=== PATIENT | female | born 1940 | race Caucasian/White ===

== ENCOUNTER 2022-08-29 09:44 | Outpatient (CLI) | payer MEDICARE, SELFPAY ==
--- NOTE | ~2022-08-29 | DEXA_ITS ---
Bone Density Report Name: TERRI SAENZ Age: 82 Sex: Female Ethnicity: White Date of : 1940 Indication: osteopenia; prior fracture; postmenopausal Referring Provider: JANELLE, AMI Sow Study: Bone densitometry was performed. Exam Date: August 29, 2022 Accession number: [id number] Bone Density: Region BMD T-score Z-score Classification AP Spine(L1, L2, L3) 0.978 -0.4 2.4 Normal Femoral Neck (Left) 0.592 -2.3 0.2 Osteopenia Total Hip (Left) 0.715 -1.9 0.4 Osteopenia Femoral Neck (Right) 0.577 -2.4 0.0 Osteopenia Total Hip (Right) 0.700 -2.0 0.3 Osteopenia Total Hip Mean 0.707 -2.0 0.4 Osteopenia World Health Organization criteria for BMD impression classify patients as: Normal (T-score at or above -1.0), Osteopenia (T-score between -1.0 and -2.5), or Osteoporosis (T-score at or below -2.5). 10-year Fracture Risk(1): Major Osteoporotic Fracture 25% Hip Fracture 8.1% Reported Risk Factors: [place] (), Neck BMD=0.577, BMI=25.5, previous fracture (1) FRAX(R) Version 3.08. Fracture probability calculated for an untreated patient. Fracture probability may be lower if the patient has received treatment. Previous Exams: Region Exam Age BMD T-score BMD Change BMD Change Date g/cm2 vs Baseline vs Previous AP Spine (L1-L3) 08/29/2022 82 0.978 -0.4 0.019 (2.0%) 0.019 (2.0%) 07/30/2017 76 0.958 -0.5 Total Hip(Left) 08/29/2022 82 0.715 -1.9 -0.030 (-4.0%) -0.030 (-4.0%) 07/30/2017 76 0.744 -1.6 Total Hip(Right) 08/29/2022 82 0.700 -2.0 -0.028 (-3.8%) -0.028 (-3.8%) 07/30/2017 76 0.728 -1.8 *Denotes significance at 95% confidence level, LSC for AP Spine = 0.022 g/cm2, LSC for Total Hip = 0.027 g/cm2 Clinical Information Provided by Patient: Has had a low trauma fracture Has used the following medications: Vitamin D Patient maximum height was 64.0 Menopause Age: 48 Drinks caffeinated beverages Onset of menses at age 11 Number of children 1 Impression: The patient has low bone mass, based on the Right Femoral Neck T-score. The patient has an estimated ten-year risk of hip fracture of 8.1% and an estimated ten-year risk of major fracture of 25%, based on the WHO FRAX algorithm. The patient has risk factors, including: previous fracture. The BMD for the Total Hip(Left) decreased, changing by -4.0% since the last DXA exam. The BMD for the Total Hip(Right) decreased, changing by -3.8% since th
== END 2022-08-29 09:45 | disposition home or self-care (01) ==
PROVIDERS: PCP Internal Medicine; Visit Provider Internal Medicine
DX: M81.0 Age-related osteoporosis without current pathological fracture (principal); M85.852 Other specified disorders of bone density and structure, left thigh; M85.851 Other specified disorders of bone density and structure, right thigh
CPT/HCPCS: 77080

== ENCOUNTER 2025-01-06 12:15 | Outpatient (CLI) | payer MEDICARE, SELFPAY ==
--- NOTE | ~2025-01-06 | XR_ITS ---
EXAM/ PROCEDURE: XR lumbar spine 2-3V - 01/06/2025 12:45 CDT HISTORY: 84 years old Female with pain in unspecified hip/low back pain COMPARISON: None available TECHNIQUE: Four view(s) FINDINGS/ IMPRESSION: There are no fractures or dislocations.Multilevel degenerative changes are seen. Atherosclerotic calc ifications are seen. Reviewed, dictated and finalized at location A.
--- NOTE | ~2025-01-06 | XR_ITS ---
AP view of the pelvis and AP and lateral views of the bilateral hips Clinical history: Pain Findings: No acute fracture or dislocation is seen. Osseous alignment is anatomic. Bilateral hip and SI joint spaces are preserved. Soft tissues are unremarkable. Impression: No significant abnormality is seen. Reviewed, dictated and finalized at [facility]. Impression: No significant abnormality is seen.
--- OUTSIDE RECORDS SUMMARY | 2025-01-06 13:38 | XMS_ITS | Continuity of Care Document ---
Author Organization [place] [facility], [facility] [place] Address [address] [place] [address] Care Team Providers Care Buggy Ladle Tender Name Role Phone AMI MAJOR Primary Care Provider [phone] AMI MAJOR Referring Provider Assessment No assessment recorded. Plan of Treatment Reminders Order Date Submit Date Provider Last Modified By Organization Details Last Modified Time Details Appointments None recorded . Lab CBC w/ auto diff 025 01/06/[address] [facility], [address] [place], [address], 5 15:19:59 CMP, serum or plasma 025 01/06/[address] [facility], [address] [place], [address], 5 15:20:00 lipid panel, serum 025 01/06/[address] [facility], [address] [place], [address], 5 15:20:00 Referral None recorded . Procedures None recorded . Surgeries None recorded . Imaging None recorded . Medication Orders None recorded . Patient TargetsNo targets recorded. Patient Instructions Encounter Date Encounter Id Patient Instructions Last Modified By Organization Details Last Modified Time 01/05/2025 [id number] Follow-up rocha ry artery disease, essential hypertension, hyperlipidemia, bilateral hip pain and chronic kidney disease stage IIIA. Instructed once again to stay away from any type of non steroid inflammatory agents. Will continue on current medications. Check a CBC CMP lipid panel. Also check a x-ray both the lumbar spine and hips. Follow-up in six months Additional Orders - Directives - Recommendations 1. x-ray of pelvis and both hips 2. X-ray lumbar spine Follow Up: 6 Months Approximate Date: 07/04/2025 Portions of record are template driven. When necessary additional context will be provided. Additionally some portions have been created with voice recognition software. Occasional wrong-word or [id number] substitutions may have occurred due to the inherent limitations of voice recognition software. Read the chart carefully and recognize, using context, where substitutions may have occurred. Created: Ami Major M.D. 01.05.2025 02:19 PM [email or web address] Not available 01/05/2025 15:19:03 Reason for Referral None Reported. Results Created Date Observation Date Name Description Value Unit Range Abnormal Flag Note LastModifiedBy Organization Detail LastModifiedTime 01/07/2001/06/2025 XR, hip + pelvi s, bilat eral No observ ation record ed. [address], [place], [address], 01/06/2025 14:32:55 01/07/2001/06/2025 XR, lumba r spine No observ ation record ed. [address], [place], [address], 01/06/2025 14:35:38 Result Notes None recorded. Problems Name Problem SNOMED Code Status Onset Date Resolution Date Notes Provider Name and Address Organization Details Recorded Time Renewal of prescription Active 2021 Not Available [facility] 3 14:11:38 Pure hypercholeste rolemia 017020407 Active Not Available [facility] 3 14:11:38 Age related macular degeneration 151093399 Active Not Available [facility] 3 14:11:38 Shoulder joint pain 619947257 Active Not Available [facility] 3 14:11:38 Osteopenia 683866905 Active 2021 Not Available [facility] 3 14:11:38 Vitamin D deficiency 24274386 Active Not Available [facility] 3 14:11:38 Exudative age-related macular degeneration 105210629 Active 2021 Not Available [facility] 3 14:11:39 Coronary arteriosclero sis 52855306 Active Not Available [facility] 3 14:11:39 Carotid artery stenosis 49425619 Active Not Available [facility] 3 14:11:39 Osteoporosis 63665935 Active 2021 Not Available [facility] 3 14:11:39 Chronic kidney disease stage 3A 040625297 Active 2019 Not Available [facility] 3 14:11:39 Serum creatinine above reference range 872405246 Active 2022 Giovanna Buck HAND BOOTMAKER null, [place] [facility] 3 14:54:09 Essential hypertension 51364993 Active 2023 Giovanna Buck CMA null, [place] [facility] 4 14:02:31 Hip pain 80168370 Active 2024 Ami Major MD [address] [place] [address], [phone] , [facility] 5 15:14:00 Low back pain 447490392 Active 2024 Daisy Sean null, [facility] 5 15:23:14 Problem Notes None recorded. Medical Equipment None Reported. Allergies Allergen ID Allergen Name Allergen Category Reaction Reaction Severity Criticality Documentation Date Start Date Code Code System Note Provider Name and Address Organization Details Recorded Time 64754 lisinopri l medicatio n cough Not available Not available 11/28/2022 73415 RxNorm Not Available [facility] 3 14:14:24 Medications Name Sig Start Date Stop Date Status Note LastModified by Organization Details LastModified Time losartan 50 mg tablet Take 1 tablet every day by oral route. 09/15 completed Not Available Not Available Not Available amoxicillin 500 mg capsule Take 1 capsule 3 times a day by oral route for 10 days. 01/07 completed Not Available Not Available Not Available atorvastati n 40 mg tablet TAKE 1 TABLET EVERY DAY active Not Available Not Available No t Available aspirin 325 mg tablet on three times weekly 2012 active Not Available Not Available Not Avai lable alendronate 70 mg tablet TAKE 1 TABLET BY MOUTH ONCE A WEEK active Not Available Not Available No t Available aspirin 81 mg tablet,rohan yed release Take 1 tablet every day by oral route. active Not Available Not Available No t Available Cipro 500 mg tablet Take 1 tablet twice a day by oral route for 10 days. 01/15 completed Not Available Not Available Not Available metoprolol tartrate 50 mg tablet TAKE 1 TABLET TWICE DAILY active Not Available Not Available No t Available hydrochloro thiazide 25 mg tablet TAKE 1 TABLET BY MOUTH ONCE DAILY active Not Available Not Available No t Available metoprolol succinate ER 25 mg tablet,exte nded release 24 hr Take 1 tablet every day by oral route. 2013 active Not Available Not Available Not Avai lable Vitamin D2 1,250 mcg (50,000 unit) capsule Take 1 capsule every week by oral route. 01/15 completed Not Available Not Available Not Available losartan 100 mg tablet TAKE 1 TABLET EVERY DAY 07/02 completed Not Available Not Available Not Available atenolol 50 mg tablet Take 1 tablet every day by oral route. 2012 active Not Available Not Available Not Avai lable Asprin Ec Low Dose 81 mg tablet,rohan yed release Take 1 tablet every day by oral route. 12/30 completed Not Available Not Available Not Available ezetimibe 10 mg tablet TAKE 1 TABLET EVERY DAY active Not Available Not Available No t Available Multivitami n 50 Plus tablet Take 1 tablet every day by oral route. 2018 active Not Available Not Available Not Avai lable metoprolol tartrate 25 mg tablet TAKE 1 TABLET TWICE DAILY 08/25 completed Not Available Not Available Not Available Co Q-10 07/14 completed Not Available Not Available Not Available Os-Risa 500 + D3 one twice a day 07/02 completed Not Available Not Available Not Available [place] 3 1000mg twice a day 07/02 completed Not Available Not Available Not Available multivitami n once daily 07/14 completed Not Available Not Available Not Available ICaps AREDS one daily 01/15 completed Not Available Not Available Not Available Os-Risa 500 + D3 500 mg-15 mcg (600 unit) tablet Take 1 tablet twice a day by oral route. active Not Available Not Available No t Available PreserVisio n AREDS-2 250 mg-90 mg-40 mg-1 mg capsule Take 1 tablet every day by oral route. 12/30 completed Not Available Not Available Not Available metoprolol tartrate 75 mg tablet 01/01 completed Not Available Not Available Not Available ID NOW COVID-19 Test Kit DIRECTED 06/12 completed Not Available Not Available Not Available omega 3 360 mg-dha 108 mg-epa 180 mg-fish oil 1,200 mg capsule Take 1 capsule every day by oral route. active Not Available Not Available No t Available Vitals Date Recorded Body height Body mass index (BMI) Body weight Heart rate Body temperature Oxygen saturation Oxygen saturation in Arterial blood by Pulse oximetry Systolic blood pressure Diastolic blood pressure Provider Name and Address Organization Details Last Updated DateTime 5 161.29 cm 24.8 kg/m2 24851.1 2 g 76 /min 97 [degF] 97 % 97 % 120 mm[Hg] 64 mm[Hg] Cande Ramos Jorge Luis [employer] 5 15:03:28 Social History Question Answer Notes LastModified by [employer] Details LastModified Time Are You Blind Or Do You Have Difficulty Seeing? No [id number] Information not available 11/28/2022 In The 14 Days Before Symptom Onset, Have You Had Close Contact With A Laboratory-confirme d COVID-19 While That Case Was Ill? No [id number] Information not available 11/28/2022 In The 14 Days Before Symptom Onset, Have You Had Close Contact With A Person Who Is Under Investigation For COVID-19 While That Person Was Ill? No [id number] Information not available 11/28/2022 Are You Deaf Or Do You Have Serious Difficulty Hearing? No [id number] 26 Information not available 11/28/2022 Have You Recently Traveled Abroad? No [id number] 26 Information not available 11/28/2022 Sex: Unknown Functional Status Question Answer Note LastModified by [employer] Details LastModified Time Do you have difficulty walking or climbing stairs? No [id number] Information not available 11/28/2022 Do you have transportation difficulties? No [id number] Information not available 11/28/2022 Are you able to walk? YESWOREST [id number] Information not available 11/28/2022 Do you have difficulty doing errands alone? No [id number] [id number] Information not available 11/28/2022 Are you able to care for yourself? Yes [id number] Information not available 11/28/2022 Do you have difficulty dressing or bathing? No [id number] 026 Information not available 11/28/2022 Mental Status Question Answer Note LastModified by Organizat ion Details LastModified Time Do you have difficulty concentrating, remembering or making decisions? No [id number] Information not available 11/28/2022 Family History Nothing Reported Notes:Mother 70+ of DIANA D, CVA Father at 62 from ASHD and [place] Three brothers two living one with hx of ASHD and one of cardiac problems One sister living with cardiac problems. Medical History Condition Response NERVE DISEASE N BLINDNESS N RHEUMATIC FEVER N KIDNEY STONES N BLADDER PROBLEMS N MRSA N OTHER # 1 N POLIO N LUNG DISEASE/DISORDER N RADIATION / CHEMOTHERAPY N COPD N Other # 2 N BLOOD DISEASES N EAR OR HEARING PROBLEMS N MUMPS N BOWEL PROBLEMS N DEPRESSION (INCLUDING POST ) N STROKE/TIA N ULCERS N BENIGN PROSTATIC HYPERPLASIA N MEASLES N MYOCARDIAL INFARCTION N OBESITY N GERD/NAUSEA N ANEURYSM N URINARY/BLADDER/KIDNEY PROBLEMS N CORONARY ARTERY DISEASE (CAD) Y ADDICTION CONCERNS N Impotence N ENDOMETRIOSIS N USE OF BLOOD THINNERS N SKIN PROBLEMS N GASTROINTESTINAL DISORDER N PERIPHERAL VASCULAR DISEASE N MUSCLE,JOINT OR BONE PROBLEMS N GASTROINTESTINAL BLEEDING N BLOOD CLOTS N ASTHMA N CATARACTS N ERECTILE DYSFUNCTION N VARICOSITIES N GI PROBLEMS N Low Testosterone N INFERTILITY N AIDS/HIV N CHEMOTHERAPY / RADIATION N LIVER DISEASE N MALE HYPOGONADISM N HYPERTENSION Y Deficiency N TOURETTE'S N ANXIETY DISORDER N BLOOD TRANSFUSION N ANEMIA/BLOOD DISORDER N CHRONIC EAR INFECTIONS N BRONCHITIS N TUBERCULOSIS N GLAUCOMA N FOOT PROBLEM N DIVERTICULITIS N SLEEP APNEA N CHICKENPOX N INFECTIOUS DISEASE N PROSTATE N HEART ARRHYTHMIA N INSOMNIA N HIGH CHOLESTEROL / HYPERLIPIDEMIA Y EYE PROBLEMS Y HYPERTHYROIDISM N EDEMA N CHRONIC PAIN SYNDROME N HYPOTHYROIDISM N CONSTIPATION N CAROTID BLOCKAGE N BACK / NECK PROBLEMS N HAVE YOU BEEN HOSPITALIZED OR SEEN IN [facility] IN THE PAST YEAR ? N ATHEROSCLEROSIS N BREAST PROBLEMS N DIALYSIS N ECZEMA N OSTEOPOROSIS N ARTHRITIS N NO SIGNIFICANT PAST MEDICAL HISTORY N APPENDICITIS N DIABETES, TYPE N BAD TEETH N ENT N HEARTBURN / REFLUX N AUTISM SPECTRUM DISORDER (ASD) N HEPATITIS / LIVER DISEASE N GOUT N SLEEP DISORDER N ALZHEIMER'S DISEASE N Brain Problems N DEMENTIA N HERPES N SEIZURES/EPILEPSY N HEADACHES/MIGRAINES N VASCULAR DISEASE N PACEMAKER N Blood Disorder N DIZZINESS N HEART DISEASE/HEART PROBLEMS N KIDNEY DISEASE N MULTIPLE SCLEROSIS N CANCER: SPECIFY N CARDIAC ARRHYTHMIA N ATRIAL FIBRILLATION N Gall Stones N PULMONARY EMBOLISM N AUTOIMMUNE DISEASE N Gynecological HistoryNo gynecological history recorded. Obstetrics History GPAL:G 0 P 0 0 0 0 Immunizations Vaccine Type Date Status Note Provider Nam e and Address Organization Details Recorded Time Influenza, high-dose, quadrivalent, PF 3 completed Ami Major MD [address] [facility], [place], [address], [employer] [facility] [employer] 07/02/2023 15:36:32 Influenza, high-dose, trivalent, PF 4 completed Ami Major MD [address] [facility], [place], [address], [employer] 07/07/2024 15:34:20 Pneumococcal conjugate PCV20, polysaccharide [id number] conjugate, adjuvant, PF 4 completed Ami Major MD [address], [place], [address], [employer] [facility] [employer] 07/07/2024 15:34:20 Influenza, split virus, trivalent, preservative 3 completed Not Available [facility] 11/28/2022 14:14:21 SARS-COV-2 (COVID-19) vaccine, UNSPECIFIED 1 completed Not Available [facility] 11/28/2022 14:14:21 SARS-COV-2 (COVID-19) vaccine, UNSPECIFIED 1 completed Not Available [facility] 11/28/2022 14:14:21 Influenza, split virus, quadrivalent, preservative 2 completed Not Available [facility] 11/28/2022 14:14:21 COVID-19, mRNA, LNP-S, PF, 30 mcg/0.3 mL dose 2 completed Not Available [facility] 11/28/2022 14:14:21 COVID-19, mRNA, LNP-S, PF, 30 mcg/0.3 mL dose 1 completed Not Available [facility] 11/28/2022 14:14:21 Influenza, split virus, quadrivalent, preservative 1 completed Not Available [facility] 11/28/2022 14:14:21 Influenza, high-dose, trivalent, PF 8 completed Not Available [facility] 11/28/2022 14:14:21 Influenza, high-dose, trivalent, PF 7 completed Not Available [facility] 11/28/2022 14:14:22 Influenza, high-dose, trivalent, PF 6 completed Not Available [facility] 11/28/2022 14:14:22 Pneumococcal conjugate PCV 13 7 completed Not Available [facility] 11/28/2022 14:14:22 Influenza, split virus, quadrivalent, preservative 5 completed Not Available [facility] 11/28/2022 14:14:22 Influenza, high-dose, trivalent, PF 4 completed Not Available [facility] 11/28/2022 14:14:22 Past Encounters Encounter ID Performer Location Encounter Start Date Encounter Closed Date Diagnosis/Indication Diagnosis SNOMED-CT Code Diagnosis ICD10 Code Diagnosis Note [id number] Ami Major MD [facility] [address] [place] [address] 01/05/2025 14:49:03 01/05/2025 15:29:17 Coronary arteriosclerosis 65344128 I25.10 Essential hypertension 57414896 I10 Pure hypercholesterolemia 888784594 E78.00 Hip pain 19376823 M25.55 9 Chronic ki dney disease stage 3A 661229769 N18.31 Health Concerns Section Related Observation LastModified by Organization Detai ls LastModified Time None Recorded Concern Status LastModified by Organization Details LastModified Time None Recorded Payers Encounter Date Sequence Insurance Name Policy Number Policy Larose Covered Member ID Larose Member ID Guarantor Name 01/05/2025 1 [place] Yani Herron [id number] Yani Herron 01/05/2025 2 [place] [id number] Yani Herron [id number] Yani Herron Notes Date Note Type Note Provider Name and Address Organization Details Recorded Time 5 text/htm l Patient Name: Yani HerronDate Of Service: Saturday ( 01.05.2025 ): 1940 Age: 84 There has been approximately a 2 lb weight gain since 07/07/2024. This represents approximately a 1.4% change in weight. Weight change attributable to lifestyle changes. Vital Signs:Blood Pressure: Sitting Rt. Arm 120/64Pulse: Sitting 76 /min and RegularRespiratory Rate: 16Height 63.5 in or 1.6 mWeight 142 lb or 64.4 kgBMI 24.8Temperature: 97 F or 36.1 CPulse Oximetry: 97 % at rest on no oxygen Chief Complaint: Addressed in HPI Problems or conditions discussed in the HPI were the only ones reviewed during the encounter.Only social and family history addressed in the HPI were reviewed during this encounter. Attendant(s): NoneConstitutional and Systemic Symptoms:none Medication Reconciliation: from medication list. History of Present Illness #1. Coronary Artery Disease: There has been no change in frequency - duration - intensity in frequency, duration or intensity of chest pain. Other Complaints: none The frequency of anginal attacks is none at all. Additional Symptoms: none Therapy reviewed regarding cardiovascular management includes Aspirin, Hydrochlorothiazide, Lipitor, Metoprolol Tartrate and Zetia #2. Essential Hypertension: Stage: Stage I Interval Neurological Complaints no headaches, dizziness, weakness, visual changes, ataxia, aphasia and apraxia. No shortness of breath, orthopnea or cardiovascular symptoms. No other symptoms related to end organ damage. Pressure has been under excellent control. Currently normal. No other end organ symptoms or findings. Therapy reviewed regarding management of hypertension and includes salt restriction and Hydrochlorothiazide and Metoprolol Tartrate. #3. Type II Hypercholesterolaemia: Currently taking medication and tolerating well. No interval complaints of any muscle pain or arthralgia. No significant liver changes with medications. Last lipid panel: excellent control. Therapy reviewed regarding treatment of cholesterol management and include diet and Lipitor and Zetia. #4. Complaining of bilateral hip pain more in the morning than in the evening. States that when she gets up and starts moving around the pain seems to get better. Does not interfere with any daily activities. Denies any numbness, tingling, weakness, saddle anesthesia or any incontinence of urine or stool.: #5. History of chronic renal failure currently doing well. Currently is followed by a broadcast operations manager. Stage: CKD-3a. Albumin Stage: A1. There has been no change in urine output or color. No fever or chills. Active Medication ListAspirin 325 MG One Three Times WeeklyMetoprolol Tartrate 50 MG (TABLET - ORAL) One BidLipitor 80 MG (TABLET - ORAL) One Tab DailyOmega-3 1000 MG One BidOs-risa D 500 MG One Bid For Calcium ReplacementMultivitamin One DailyZetia 10 MG (TABLET - ORAL) One DailyPerser Vision Aereds II DailyHydrochlorothiazide 25 MG TABLET Once DailyAlendronate Sodium 70 MG TABLET One Weekly Adverse Drug Reactions ReviewedLisinopril Cough Vaccination and Immunization( ) 2008-07 PNEUMOVAX( ) 2024-06 INFLUENZA( ) 2017-06 PREVNAR 13 GC(X) 2021-06 COVID PFIZER( ) 2024-06 INFLUENZA ED HD( ) 2024-06 PREVNAR 20 Surgical Banccip7271-19 CABG Preventative Testing( ) 07/09/2024 Albumin 4.1 G/DL N( ) 08/29/2022 DEXA Scan 08/29/2024( ) 07/26/2022 Ophthalmology( ) 06/01/2016 Optometry( ) 01/19/2016 Mammogram( ) 03/05/2014 Colonoscopy (10 Years) 03/05/2024 Social HistoryDoes not smoke drinks socially Family HistoryMother 70+ of ASHD, CVAFather at 62 from ASHD and [place]Three brothers two living one with hx of ASHD and one of cardiac problemsOne sister living with cardiac problems. TEST RESULT RANGE UNITSCBC (INCLUDES DIFF/PLT) Date: 07/09/2024WHITE BLOOD CELL COUNT 6.3 3.8-10.8 THOUSAND/ULHEMOGLOBIN 14.6 11.7-15.5 G/DLHEMATOCRIT 44.4 35.0-45.0 %PLATELET COUNT 207 140-400 THOUSAND/ULCOMPREHENSIVE METABOLIC PANEL Date: 07/09/2024GLUCOSE 104 65-99 MG/DLUREA NITROGEN (BUN) 23 7-25 MG/DLCREATININE 1.30 0.60-0.95 MG/DLSODIUM 139 135-146 MMOL/LPOTASSIUM 4.1 3.5-5.3 MMOL/LCALCIUM 10.1 8.6-10.4 MG/DLALKALINE PHOSPHATASE 73 37-153 U/LAST 17 10-35 U/LALT 22 6-29 U/LLIPID PANEL, STANDARD Date: 4CHOLESTEROL, TOTAL 132 <200 MG/DLHDL CHOLESTEROL 44 > OR = 50 MG/DLTRIGLYCERIDES 118 <150 MG/DLLDL-CHOLESTEROL 68 MG/DL (CALC) Ami Major MD [address] [facility] [facility] [address], [place], [address], [place] [facility] 01/05/2025 15:19:30 OBGyn Episode No OBEpisode recorded.
--- OUTSIDE RECORDS SUMMARY | 2025-01-06 13:39 | XMS_ITS | Data Portability ---
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 Plan of Treatment Reminders Order Date Submit Date Provider Last Modified By Organization Details Last Modified Time Details Appointments None recorded. Lab CBC w/ auto diff [address] Out[facility], [address] [place], [address], 15:19:59 CMP, serum or plasma [address] Out[facility], [address] [place], [address], 5 15:20:00 lipid panel, serum [address] Outpatient Lab, [address] [place], [address], 5 15:20:00 PTH (parathyroi d hormone), intact, serum or plasma 2023 024 [facility] Out[facility] Lab, [address] [place], [address], 4 20:50:45 vitamin D, 25-hydroxy, total, serum 2023 024 [facility], [address] [place], [address], 4 20:50:48 phosphorus, serum or plasma 2023 024 [facility], [address] [place], [address], 20:50:40 urinalysis complete, reflex culture 2023 024 [facility], [address] [place], [address], 20:50:43 CBC w/ auto diff 2023 024 [facility], [address] [place], [address], 20:50:42 CMP, serum or plasma 2023 024 [facility], [address] [place], [address], 20:50:41 TSH, serum or plasma 2023 024 [facility], [address] [place], [address], 20:50:47 T4, free, serum 2023 024 [facility], [address] [place], [address], 20:50:46 PTH (parathyroi d hormone), intact, serum or plasma 2023 024 [facility], [address] [place], [address], 4 06:39:23 vitamin D, 25-hydroxy, total, serum 2023 024 [facility], [address] [place], [address], 4 06:39:24 phosphorus, serum or plasma 2023 024 [facility], [address] [place], [address], 4 06:39:18 urinalysis complete, reflex culture 2023 024 [facility], [address] [place], [address], 4 06:39:21 CBC w/ auto diff 2023 024 [facility], [address] [place], [address], 4 06:39:20 CMP, serum or plasma 2023 024 [facility], [address] [place], [address], 4 06:39:19 lipid panel, serum 2023 024 [facility], [address] [place], [address], 4 06:39:16 lipid panel, serum 2022 023 [facility], [address] [place] [address], [address], 3 17:05:01 lipid panel, serum 2022 023 [facility], [address] [place], [address], 3 03:07:24 CMP, serum or plasma 2022 023 [facility], [address] [place], [address], 3 03:07:26 PTH (parathyroi d hormone), intact, serum or plasma [email or web address] [place] [address] Outpatient Lab, [address] [place], [address], 3 13:55:06 vitamin D, 25-hydroxy, total, serum 2022 023 [facility], [address] [place] [address], [address], 3 03:07:30 phosphorus, serum or plasma 2022 023 [facility], [address] [place] [address], [address], 3 03:07:27 urinalysis complete, reflex culture 2022 023 [facility], [address] [place] [address], [address], 3 03:07:28 CBC w/ auto diff 2022 023 [facility] Lab, [address] [place] [address], [address], 3 03:07:27 Referral None recorded. Procedures None recorded. Surgeries None recorded. Imaging None recorded. Medication Orders None recorded. Patient TargetsNo targets recorded. Patient Instructions Encounter Date Encounter Id Patient Instructions Last Modified By Organization Details Last Modified Time 01/01/2023 [id number] Follow-up rocha ry artery disease -hypertension -hyperlipidemia-chr onic kidney disease. Clinically stable. No interval complaints of any new problems. Will need blood work in the form of CBC, CMP, lipid, PTH, phosphorus, vitamin-D level and urinalysis. Continue on current Rx. Follow-up in six months [email or web address] Not available 01/01/2023 15:02:09 07/02/2023 [id number] Coronary artery disease, essential hypertension, lipidemia and chronic kidney disease stage IIIA. Was given the influenza shot. Currently is doing well overall. Is being followed by Nephrology. Will continue on current Rx. Will check a lipid panel. Follow-up in six months. Standard immunizations of RSV, COVID, influenza and shingles as recommended Portions of the record may have been created with voice recognition software. Occasional wrong-word or s ound-a-like substitutions may have occurred due to the inherent limitations of voice recognition software. Read the chart carefully and recognize, using context, where substitutions have occurred. [email or web address] Not available 07/02/2023 15:41:47 12/31/2023 [id number] Follow-up rocha ry artery disease, hypertension, hyperlipidemia and chronic kidney disease stage IIIA. All clinically stable. Will continue on current Rx check blood work consisting of CBC, CMP, lipid, phosphorus, PTH, vitamin-D level and urinalysis. Continue on current Rx follow-up in six months. Next Appt: 6 Months Approximate Date: 06/28/2024 Portions of the record may have been created with voice recognition software. Occasional wrong-word or s ound-a-like substitutions may have occurred due to the inherent limitations of voice recognition software. Read the chart carefully and recognize, using context, where substitutions have occurred. [email or web address] Not available 12/31/2023 15:51:23 07/07/2024 [id number] Follow-up rocha ry artery disease, hypertension, hyperlipidemia, chronic kidney disease stage IIIA. Check blood work consisting of CBC, CMP, lipid, thyroid, phosphorus, PTH level, vitamin-D. Follow-up in six months. Follow Up: 6 Months Approximate Date: 01/03/2025 Portions of the record may have been created with voice recognition software. Occasional wrong-word or s ound-a-like substitutions may have occurred due to the inherent limitations of voice recognition software. Read the chart carefully and recognize, using context, where substitutions have occurred. [email or web address] Not available 07/07/2024 15:18:37 01/05/2025 [id number] Follow-up rocha ry artery disease, essential hypertension, [...] with voice recognition software. Occasional wrong-word or s ound-a-like substitutions may have occurred due to the inherent limitations of voice recognition software. Read the chart carefully and recognize, using context, where substitutions may have occurred. Created: Ami Major M.D. 01.05.2025 02:19 PM [email or web address] Not available 01/05/2025 15:19:03 Reason for Referral None Reported. Results Created Date Observation Date Name Description Value Unit Range Abnormal Flag Note LastModifiedBy Organization Detail LastModifiedTime 01/05/2001/06/2023 LIPID PANEL , STAND ZHANE cholesterol, total 140 mg/dL <200 normal Not Available [address], [address], 01/06/2023 03:07:23 01/05/20 23 01/06/2023 LIPID PANEL , STAND ZHANE HDL cholesterol 51 mg/dL > or = 50 normal Not Available [address], [address], 01/06/2023 03:07:23 01/05/20 23 01/06/2023 LIPID PANEL , STAND ZHANE triglyceride s 89 mg/dL <150 normal Not Available [address], [address], 01/06/2023 03:07:23 01/05/20 23 01/06/2023 LIPID PANEL , STAND ZHANE LDL-choleste rol 72 mg/dL _(risa c) normal Refer ence range : <100 Rosanna able range <100 mg/dL for prima ry preve ntion ; <70 mg/dL for patie nts with CHD or diabe tic patie nts with > or = 2 CHD risk facto rs. LDL-C is now calcu lated using the Yasmin n-Hop kins araceliu albert n, which is a valid ated novel kristiano d yesi gupta accur acy than the Fried maegan equat ion in the estim ation of LDL-C . Yasmin terrazas SS et al. MAUREEN. 2013; 310(1 9): 2061- 2068 (http ://ed ucati on.Qu estDi agnos Partnerbyte. com/f aq/FA Q164) Not Available [address] [address] [place], [address], 01/06/2023 03:07:23 01/05/20 23 01/06/2023 LIPID PANEL , STAND ZHANE chol/HDLC ratio 2.7 (calc ) <5.0 normal Not Available [address], [address], 01/06/2023 03:07:23 01/05/20 23 01/06/2023 LIPID PANEL , STAND ZHANE non HDL cholesterol 89 mg/dL _(risa c) <130 normal For patie nts with diabe edwin plus 1 major ASCVD risk facto r, treat ing to a non-H DL-C goal of <100 mg/dL (LDL- C of <70 mg/dL ) is consi yun a aarti faith c optio n. Not Available [address], [place], [address], 01/06/2023 03:07:23 01/05/2001/06/2023 PTH, INTAC T AND CALCI UM parathyroid hormone, intact 66 pg/mL 16-77 normal Inter preti ve Guide Intac t PTH Calci um ----- ----- ----- --- ----- ----- ----- -- Ryaa l Parat hyroi d Raya l Raya l Hypop eli yroid ism Low or Low Raya l Low Hyper parat hyroi dism Prima ry Raya l or High High Secon adelita High Raya l or Low Terti harley High High Non-P eli yroid Hyper calce romulo Low or Low Raya l High Not Available [address] [address] [place], [address], 01/06/2023 03:07:25 01/05/2001/06/2023 PTH, INTAC T AND CALCI UM calcium 9.8 mg/dL 8.6-10 .4 normal Not Available [facility] [address], [address], 01/06/2023 03:07:25 01/05/20 23 01/06/2023 COMPR EHENS JOSE METAB OLIC PANEL glucose 104 mg/dL 65-99 high Fasti ng refer ence inter carlos alberto For someo ne witho ut known diabe edwin, a gluco se value betwe en 100 and 125 mg/dL is consi stent with predi abete s and shoul d be confi rmed with a follo w-up test. Not Available [address], [address], 01/06/2023 03:07:26 01/05/20 23 01/06/2023 COMPR EHENS JOSE METAB OLIC PANEL urea nitrogen (BUN) 26 mg/dL 7-25 high Not Available [address], [address], 01/06/2023 03:07:26 01/05/20 23 01/06/2023 COMPR EHENS JOSE METAB OLIC PANEL creatinine 1.41 mg/dL 0.60-0 .95 high Not Available [address], [address], 01/06/2023 03:07:26 01/05/20 23 01/06/2023 COMPR EHENS JOSE METAB OLIC PANEL eGFR 37 mL/mi n/1.7 3m2 > or = 60 low The eGFR is based on the CKD-E PI 2020 equat ion. To calcu late the new eGFR from a previ ous Creat inine or Cysta alaina C resul t, go to https ://kalyani barnes/gwen dunbar/ kdoqi /gfr% 5Fcal culat or Not Available [address], [address], 01/06/2023 03:07:26 01/05/20 23 01/06/2023 COMPR EHENS JOSE METAB OLIC PANEL BUN/creatini ne ratio 18 (calc ) 6-22 normal Not Available [address], [address], 01/06/2023 03:07:26 01/05/20 23 01/06/2023 COMPR EHENS JOSE METAB OLIC PANEL sodium 142 mmol/ L 135-14 6 normal Not Available [address], [address], 01/06/2023 03:07:26 01/05/20 23 01/06/2023 COMPR EHENS JOSE METAB OLIC PANEL potassium 5.9 mmol/ L 3.5-5. 3 high Not Available [address], [address], 01/06/2023 03:07:26 01/05/20 23 01/06/2023 COMPR EHENS JOSE METAB OLIC PANEL chloride 108 mmol/ L 98-110 normal Not Available [address], [address], 01/06/2023 03:07:26 01/05/20 23 01/06/2023 COMPR EHENS JOSE METAB OLIC PANEL carbon dioxide 28 mmol/ L 20-32 normal Not Available [address], [address], 01/06/2023 03:07:26 01/05/20 23 01/06/2023 COMPR EHENS JOSE METAB OLIC PANEL calcium 9.8 mg/dL 8.6-10 .4 normal Not Available [address], [address], 01/06/2023 03:07:26 01/05/2001/06/2023 COMPR EHENS JOSE METAB OLIC PANEL protein, total 6.6 g/dL 6.1-8. 1 normal Not Available [address], [address], 01/06/2023 03:07:26 01/05/20 23 01/06/2023 COMPR EHENS JOSE METAB OLIC PANEL albumin 4.2 g/dL 3.6-5. 1 normal Not Available [address], [address], 01/06/2023 03:07:26 01/05/20 23 01/06/2023 COMPR EHENS JOSE METAB OLIC PANEL globulin 2.4 g/dL_ (calc ) 1.9-3. 7 normal Not Available [address], [address], 01/06/2023 03:07:26 01/05/20 23 01/06/2023 COMPR EHENS JOSE METAB OLIC PANEL albumin/glob ulin ratio 1.8 (calc ) 1.0-2. 5 normal Not Available [address], [address], 01/06/2023 03:07:26 01/05/20 23 01/06/2023 COMPR EHENS JOSE METAB OLIC PANEL bilirubin, total 0.5 mg/dL 0.2-1. 2 normal Not Available [address], [place], [address], 01/06/2023 03:07:26 01/05/20 23 01/06/2023 COMPR EHENS JOSE METAB OLIC PANEL alkaline phosphatase 77 U/L 37-153 normal Not Available [address] [address] [place], [address], 01/06/2023 03:07:26 01/05/20 23 01/06/2023 COMPR EHENS JOSE METAB OLIC PANEL AST 16 U/L 10-35 normal Not Available [address], [address], 01/06/2023 03:07:26 01/05/20 23 01/06/2023 COMPR EHENS JOSE METAB OLIC PANEL ALT 20 U/L 6-29 normal Not Available [address], [address], 01/06/2023 03:07:26 01/05/20 23 01/06/2023 PHOSP HATE ( PHOSP HORUS ) phosphate ( phosphorus) 3.4 mg/dL 2.1-4. 3 normal Not Available [address], [address], 01/06/2023 03:07:27 01/05/2001/06/2023 CBC (INCL UDES DIFF/ PLT) white blood cell count 6.6 thous and/u L 3.8-10 .8 normal Not Available [address], [address], 01/06/2023 03:07:27 01/05/20 23 01/06/2023 CBC (INCL UDES DIFF/ PLT) red blood cell count 4.64 dillan on/uL 3.80-5 .10 normal Not Available [address], [address], 01/06/2023 03:07:27 01/05/20 23 01/06/2023 CBC (INCL UDES DIFF/ PLT) hemoglobin 14.3 g/dL 11.7-1 5.5 normal Not Available [address], [address], 01/06/2023 03:07:27 01/05/2001/06/2023 CBC (INCL UDES DIFF/ PLT) hematocrit 43.8 % 35.0-4 5.0 normal Not Available [address], [address], 01/06/2023 03:07:27 01/05/20 23 01/06/2023 CBC (INCL UDES DIFF/ PLT) MCV 94.4 fL 80.0-1 00.0 normal Not Available [address], [address], 01/06/2023 03:07:27 01/05/20 23 01/06/2023 CBC (INCL UDES DIFF/ PLT) MCH 30.8 pg 27.0-3 3.0 normal Not Available [address], [address], 01/06/2023 03:07:27 01/05/20 23 01/06/2023 CBC (INCL UDES DIFF/ PLT) MCHC 32.6 g/dL 32.0-3 6.0 normal Not Available [address], [address], 01/06/2023 03:07:27 01/05/20 23 01/06/2023 CBC (INCL UDES DIFF/ PLT) RDW 12.5 % 11.0-1 5.0 normal Not Available [address], [address], 01/06/2023 03:07:27 01/05/2001/06/2023 CBC (INCL UDES DIFF/ PLT) platelet count 204 thous and/u L 140-40 0 normal Not Available [address], [address], 01/06/2023 03:07:27 01/05/20 23 01/06/2023 CBC (INCL UDES DIFF/ PLT) MPV 10.8 fL 7.5-12 .5 normal Not Available [address], [address], 01/06/2023 03:07:27 01/05/2001/06/2023 CBC (INCL UDES DIFF/ PLT) absolute neutrophils 3610 cells /uL 1500-7 800 normal Not Available [address], [address], 01/06/2023 03:07:27 01/05/20 23 01/06/2023 CBC (INCL UDES DIFF/ PLT) absolute lymphocytes 2053 cells /uL 850-39 00 normal Not Available [address], [address], 01/06/2023 03:07:27 01/05/20 23 01/06/2023 CBC (INCL UDES DIFF/ PLT) absolute monocytes 693 cells /uL 200-95 0 normal Not Available [address], [address], 01/06/2023 03:07:27 01/05/2001/06/2023 CBC (INCL UDES DIFF/ PLT) absolute eosinophils 211 cells /uL 15-500 normal Not Available [address], [address], 01/06/2023 03:07:27 01/05/20 23 01/06/2023 CBC (INCL UDES DIFF/ PLT) absolute basophils 33 cells /uL 0-200 normal Not Available [address], [address], 01/06/2023 03:07:27 01/05/2001/06/2023 CBC (INCL UDES DIFF/ PLT) neutrophils 54.7 % normal Not Available [address], [address], 01/06/2023 03:07:27 01/05/2001/06/2023 CBC (INCL UDES DIFF/ PLT) lymphocytes 31.1 % normal Not Available [facility] [address], [address], 01/06/2023 03:07:27 01/05/20 23 01/06/2023 CBC (INCL UDES DIFF/ PLT) monocytes 10.5 % normal Not Available [address], [address], 01/06/2023 03:07:27 01/05/20 23 01/06/2023 CBC (INCL UDES DIFF/ PLT) eosinophils 3.2 % normal Not Available [address], [address], 01/06/2023 03:07:27 01/05/20 23 01/06/2023 CBC (INCL UDES DIFF/ PLT) basophils 0.5 % normal Not Available [address], [address], 01/06/2023 03:07:27 01/05/20 23 01/06/2023 URINA LYSIS , COMPL ETE W/REF NERISSA TO CULTU RE color YELLOW yellow normal Not Available [address], [address], 01/06/2023 03:07:28 01/05/20 23 01/06/2023 URINA LYSIS , COMPL ETE W/REF NERISSA TO CULTU RE appearance CLEAR clear normal Not Available [address], [address], 01/06/2023 03:07:28 01/05/20 23 01/06/2023 URINA LYSIS , COMPL ETE W/REF NERISSA TO CULTU RE specific gravity 1.021 1.001- 1.035 normal Not Available [address], [address], 01/06/2023 03:07:28 01/05/2001/06/2023 URINA LYSIS , COMPL ETE W/REF NERISSA TO CULTU RE pH < OR = 5.0 5.0-8. 0 normal Not Available [address], [address], 01/06/2023 03:07:28 01/05/20 23 01/06/2023 URINA LYSIS , COMPL ETE W/REF NERISSA TO CULTU RE glucose NEGATI VE negati ve normal Not Available [facility] [address] [address] [place], [address], 01/06/2023 03:07:28 01/05/2001/06/2023 URINA LYSIS , COMPL ETE W/REF NERISSA TO CULTU RE bilirubin NEGATI VE negati ve normal Not Available [facility] [address] [place], [address], 01/06/2023 03:07:28 01/05/20 23 01/06/2023 URINA LYSIS , COMPL ETE W/REF NERISSA TO CULTU RE ketones NEGATI VE negati ve normal Not Available [facility] [address], [address], 01/06/2023 03:07:28 01/05/20 23 01/06/2023 URINA LYSIS , COMPL ETE W/REF NERISSA TO CULTU RE occult blood NEGATI VE negati ve normal Not Available [facility] [address] [address] [place], [address], 01/06/2023 03:07:28 01/05/2001/06/2023 URINA LYSIS , COMPL ETE W/REF NERISSA TO CULTU RE protein TRACE negati ve abnormal Not Available [address] [place], [address], 01/06/2023 03:07:28 01/05/2001/06/2023 URINA LYSIS , COMPL ETE W/REF NERISSA TO CULTU RE nitrite NEGATI VE negati ve normal Not Available [facility] [address] [address] [place], [address], 01/06/2023 03:07:28 01/05/2001/06/2023 URINA LYSIS , COMPL ETE W/REF NERISSA TO CULTU RE leukocyte esterase 2+ negati ve abnormal Not Available [facility] [address] [place], [address], 01/06/2023 03:07:28 01/05/20 23 01/06/2023 URINA LYSIS , COMPL ETE W/REF NERISSA TO CULTU RE WBC 10-20 /hpf < or = 5 abnormal Not Available [address], [address], 01/06/2023 03:07:28 01/05/20 23 01/06/2023 URINA LYSIS , COMPL ETE W/REF NERISSA TO CULTU RE RBC 0-2 /hpf < or = 2 normal Not Available [address], [address], 01/06/2023 03:07:28 01/05/20 23 01/06/2023 URINA LYSIS , COMPL ETE W/REF NERISSA TO CULTU RE squamous epithelial cells 10-20 /hpf < or = 5 abnormal Not Available [address], [address], 01/06/2023 03:07:28 01/05/20 23 01/06/2023 URINA LYSIS , COMPL ETE W/REF NERISSA TO CULTU RE bacteria NONE SEEN /hpf none seen normal Not Available [address], [address], 01/06/2023 03:07:28 01/05/20 23 01/06/2023 URINA LYSIS , COMPL ETE W/REF NERISSA TO CULTU RE hyaline cast 0-5 /lpf none seen abnormal Not Available [address], [address], 01/06/2023 03:07:28 01/05/20 23 01/06/2023 URINA LYSIS , COMPL ETE W/REF NERISSA TO CULTU RE note This urine was mika zed for the prese nce of WBC, RBC, bacte mario, casts , and other forme d eleme nts. Only those eleme nts seen were repor ayush. Not Available [address], [address], 01/06/2023 03:07:28 01/05/20 23 01/06/2023 REFLE XIVE URINE CULTU RE reflexive urine culture CULTU RE INDIC ATED - RESUL TS TO FOLLO W Not Available [address] [address] [place], [address], 01/06/2023 03:07:29 01/05/20 23 01/06/2023 VITAM IN D,25- OH,TO ARLENE,I A vitamin D,25-oh,tota l,ia 58 NG/mL 30-100 normal Vitam in D Statu s 25-OH Vitam in D: Defic iency : <20 ng/mL Insuf ficie ncy: 20 - 29 ng/mL Optim al: > or = 30 ng/mL For 25-OH Vitam in D testi ng on patie nts on D2-liao pplem entat ion and patie nts for whom quant itati on of D2 and D3 fract ions is requi red, the [facility](TM ) 25-OH VIT D, (D2,D 3), LC/MS /MS is recom bernie d: order code 82635 (jerica ents >2yrs ). See Note 1 Note 1 For addit ional infor ta cary refer to http: //audrey Gamez stDia gnost ics.c om/fa q/FAQ 199 (This link is being provi ded for infor josef marie/ nathaniel salvador purpo ses only. ) Not Available [address] [address] [place], [address], 01/06/2023 03:07:30 01/05/20 23 01/06/2023 CULTU RE, URINE , ROUTI NE culture, urine, routine SEE NOTE CULTU RE, URINE , ROUTI NE Micro Numbe r: [id number] Test Statu s: Final Speci men Sourc e: Urine Speci men Quali ty: Adequ ate Resul t: No Growt h Not Available [facility] [address] [address] [place], [address], 01/06/2023 03:07:31 01/15/20 23 01/15/2023 COMPR EHENS JOSE METAB OLIC PANEL , PLASM A glucose 91 mg/dL 65-99 normal Fasti ng refer ence inter carlos alberto Not Available [address], [address], 01/15/2023 07:43:57 01/15/20 23 01/15/2023 COMPR EHENS JOSE METAB OLIC PANEL , PLASM A urea nitrogen (BUN) 26 mg/dL 7-25 high Not Available [facility] [address], [address], 01/15/2023 07:43:57 01/15/2001/15/2023 COMPR EHENS JOSE METAB OLIC PANEL , PLASM A creatinine 1.36 mg/dL 0.60-0 .95 high Not Available [address], [address], 01/15/2023 07:43:57 01/15/20 23 01/15/2023 COMPR EHENS JOSE METAB OLIC PANEL , PLASM A eGFR 38 mL/mi n/1.7 3m2 > or = 60 low The eGFR is based on the CKD-E PI 2020 equat ion. To calcu late the new eGFR from a previ ous Creat inine or Cysta tin C resul t, go to https ://kalyani barnes/gwen gonzalez s/ kdoqi /gfr% 5Fcal culat or Not Available [address], [address], 01/15/2023 07:43:57 01/15/20 23 01/15/2023 COMPR EHENS JOSE METAB OLIC PANEL , PLASM A BUN/creatini ne ratio 19 (calc ) 6-22 normal Not Available [address], [address], 01/15/2023 07:43:57 01/15/20 23 01/15/2023 COMPR EHENS JOSE METAB OLIC PANEL , PLASM A sodium 139 mmol/ L 135-14 6 normal Not Available [address], [address], 01/15/2023 07:43:57 01/15/20 23 01/15/2023 COMPR EHENS JOSE METAB OLIC PANEL , PLASM A potassium 4.1 mmol/ L 3.4-4. 8 normal Not Available [address], [address], 01/15/2023 07:43:57 01/15/20 23 01/15/2023 COMPR EHENS JOSE METAB OLIC PANEL , PLASM A chloride 103 mmol/ L 98-110 normal Not Available [address], [address], 01/15/2023 07:43:57 01/15/20 23 01/15/2023 COMPR EHENS JOSE METAB OLIC PANEL , PLASM A carbon dioxide 29 mmol/ L 20-32 normal Not Available [address], [address], 01/15/2023 07:43:57 01/15/20 23 01/15/2023 COMPR EHENS JOSE METAB OLIC PANEL , PLASM A calcium 9.8 mg/dL 8.6-10 .4 normal Not Available [address], [address], 01/15/2023 07:43:57 01/15/20 23 01/15/2023 COMPR EHENS JOSE METAB OLIC PANEL , PLASM A protein, total 6.6 g/dL 6.4-8. 4 normal Not Available [address], [address], 01/15/2023 07:43:57 01/15/20 23 01/15/2023 COMPR EHENS JOSE METAB OLIC PANEL , PLASM A albumin 4.1 g/dL 3.6-5. 1 normal Not Available [address], [address], 01/15/2023 07:43:57 01/15/20 23 01/15/2023 COMPR EHENS JOSE METAB OLIC PANEL , PLASM A globulin 2.5 g/dL_ (calc ) 2.2-4. 0 normal Not Available [address], [address], 01/15/2023 07:43:57 01/15/20 23 01/15/2023 COMPR EHENS JOSE METAB OLIC PANEL , PLASM A albumin/glob ulin ratio 1.6 (calc ) 0.9-2. 3 normal Not Available [address], [address], 01/15/2023 07:43:57 01/15/20 23 01/15/2023 COMPR EHENS JOSE METAB OLIC PANEL , PLASM A bilirubin, total 0.5 mg/dL 0.2-1. 2 normal Not Available [address], [address], 01/15/2023 07:43:57 01/15/20 23 01/15/2023 COMPR EHENS JOSE METAB OLIC PANEL , PLASM A alkaline phosphatase 71 U/L 37-153 normal Not Available [address], [address], 01/15/2023 07:43:57 01/15/20 23 01/15/2023 COMPR EHENS JOSE METAB OLIC PANEL , PLASM A AST 17 U/L 10-35 normal Not Available [address], [address], 01/15/2023 07:43:57 01/15/20 23 01/15/2023 COMPR EHENS JOSE METAB OLIC PANEL , PLASM A ALT 19 U/L 6-[address] to have a [employer] tiago copy faxed has been ackno wledg ed. Queue d to: [phone] Not Available [facility] [address] [address] [place], [address], 01/15/2023 07:43:57 07/05/2007/05/2023 LIPID PANEL , STAND ZHANE cholesterol, total 144 mg/dL <200 normal Not Available [facility] [place] [address] [place], [address], 07/05/2023 17:05:01 07/05/20 23 07/05/2023 LIPID PANEL , STAND ZHANE HDL cholesterol 46 mg/dL > or = 50 low Not Available [facility] [address], [address], 07/05/2023 17:05:01 07/05/20 23 07/05/2023 LIPID PANEL , STAND ZHANE triglyceride s 115 mg/dL <150 normal Not Available [facility] [address] [place] [address] [place], [address], 07/05/2023 17:05:01 07/05/2007/05/2023 LIPID PANEL , STAND ZHANE LDL-choleste rol 78 mg/dL _(risa c) normal Refer ence range : <100 Rosanna able range <100 mg/dL for prima ry preve ntion ; <70 mg/dL for patie nts with CHD or diabe tic patie nts with > or = 2 CHD risk facto rs. LDL-C is now calcu lated using the Yasmin n-Hop kins calcu albert n, which is a valid ated novel metho d yogeshi jered padilla r accur acy than the Fried maegan equat ion in the estim ation of LDL-C . Yasmin terrazas SS et al. MAUREEN. 2013; 310(1 9): 2061- 2068 (http ://ed ucati on.Qu Sadaf [employer]. com/f aq/FA Q164) Not Available [facility] [address] [address] [place], [address], 07/05/2023 17:05:01 07/05/20 23 07/05/2023 LIPID PANEL , STAND ZHANE chol/HDLC ratio 3.1 (calc ) <5.0 normal Not Available [facility] [address] [address] [place], [address], 07/05/2023 17:05:01 07/05/20 23 07/05/2023 LIPID PANEL , STAND ZHANE non HDL cholesterol 98 mg/dL _(risa c) <130 normal For patie nts with diabe edwin plus 1 major ASCVD risk facto r, treat ing to a non-H DL-C goal of <100 mg/dL (LDL- C of <70 mg/dL ) is consi dered a thera peuti c optio n. Not Available [facility] [address] [address] [place], [address], 07/05/2023 17:05:01 07/05/2007/06/2023 RENAL FUNCT ION PANEL glucose 105 mg/dL 65-99 high Fasti ng refer ence inter carlos alberto For someo ne witho ut known diabe edwin, a gluco se value betwe en 100 and 125 mg/dL is consi stent with predi abete s and shoul d be confi rmed with a follo w-up test. Not Available [facility] [address] [address] [place], [address], 07/06/2023 15:24:30 07/05/20 23 07/06/2023 RENAL FUNCT ION PANEL urea nitrogen (BUN) 23 mg/dL 7-25 normal Not Available [facility] [address] [address] [place], [address], 07/06/2023 15:24:30 07/05/20 23 07/06/2023 RENAL FUNCT ION PANEL creatinine 1.37 mg/dL 0.60-0 .95 high Not Available [facility] [address] [address] [place], [address], 07/06/2023 15:24:30 07/05/2007/06/2023 RENAL FUNCT ION PANEL eGFR 38 mL/mi n/1.7 3m2 > or = 60 low Not Available [address], [address], 07/06/2023 15:24:30 07/05/20 23 07/06/2023 RENAL FUNCT ION PANEL BUN/creatini ne ratio 17 (calc ) 6-22 normal Not Available [address] [address] [place], [address], 07/06/2023 15:24:30 07/05/2007/06/2023 RENAL FUNCT ION PANEL sodium 140 mmol/ L 135-14 6 normal Not Available [address], [address], 07/06/2023 15:24:30 07/05/20 23 07/06/2023 RENAL FUNCT ION PANEL potassium 3.6 mmol/ L 3.5-5. 3 normal Not Available [address] [address] [place], [address], 07/06/2023 15:24:30 07/05/2007/06/2023 RENAL FUNCT ION PANEL chloride 100 mmol/ L 98-110 normal Not Available [address] [address] [place], [address], 07/06/2023 15:24:30 07/05/2007/06/2023 RENAL FUNCT ION PANEL carbon dioxide 33 mmol/ L 20-32 high Not Available [address] [address] [place], [address], 07/06/2023 15:24:30 07/05/20 23 07/06/2023 RENAL FUNCT ION PANEL calcium 10.1 mg/dL 8.6-10 .4 normal Not Available [address] [address] [place], [address], 07/06/2023 15:24:30 07/05/2007/06/2023 RENAL FUNCT ION PANEL phosphate ( phosphorus) 3.1 mg/dL 2.1-4. 3 normal Not Available [address], [address], 07/06/2023 15:24:30 07/05/20 23 07/06/2023 RENAL FUNCT ION PANEL albumin 4.4 g/dL 3.6-5. 1 normal Not Available [address], [address], 07/06/2023 15:24:30 07/05/2007/06/2023 RENAL FUNCT ION PANEL copy received from: [facility] AD[facility] [address] [place] [address] Not Available [address], [address], 07/06/2023 15:24:30 07/05/2007/06/2023 CBC (H/H, RBC, INDIC ES, WBC, PLT) white blood cell count 5.5 thous and/u L 3.8-10 .8 normal Not Available [address], [address], 07/06/2023 15:24:30 07/05/20 23 07/06/2023 CBC (H/H, RBC, INDIC ES, WBC, PLT) red blood cell count 4.63 dillan on/uL 3.80-5 .10 normal Not Available [address], [address], 07/06/2023 15:24:30 07/05/20 23 07/06/2023 CBC (H/H, RBC, INDIC ES, WBC, PLT) hemoglobin 14.6 g/dL 11.7-1 5.5 normal Not Available [address], [address], 07/06/2023 15:24:30 07/05/20 23 07/06/2023 CBC (H/H, RBC, INDIC ES, WBC, PLT) hematocrit 43.4 % 35.0-4 5.0 normal Not Available [address], [address], 07/06/2023 15:24:30 07/05/2007/06/2023 CBC (H/H, RBC, INDIC ES, WBC, PLT) MCV 93.7 fL 80.0-1 00.0 normal Not Available [address], [address], 07/06/2023 15:24:30 07/05/20 23 07/06/2023 CBC (H/H, RBC, INDIC ES, WBC, PLT) MCH 31.5 pg 27.0-3 3.0 normal Not Available [address], [address], 07/06/2023 15:24:30 07/05/2007/06/2023 CBC (H/H, RBC, INDIC ES, WBC, PLT) MCHC 33.6 g/dL 32.0-3 6.0 normal Not Available [address], [address], 07/06/2023 15:24:30 07/05/2007/06/2023 CBC (H/H, RBC, INDIC ES, WBC, PLT) RDW 12.6 % 11.0-1 5.0 normal Not Available [address], [address], 07/06/2023 15:24:30 07/05/20 23 07/06/2023 CBC (H/H, RBC, INDIC ES, WBC, PLT) platelet count 209 thous and/u L 140-40 0 normal Not Available [address], [address], 07/06/2023 15:24:30 07/05/20 23 07/06/2023 CBC (H/H, RBC, INDIC ES, WBC, PLT) MPV 10.3 fL 7.5-12 .5 normal Not Available [address] [address] [place], [address], 07/06/2023 15:24:30 07/05/20 23 07/06/2023 CBC (H/H, RBC, INDIC ES, WBC, PLT) copy received from: [facility] [place] [facility] KLARISSA SERVI [facility] ADMN [address] [place] [address] Not Available [address] [address] [place], [address], 07/06/2023 15:24:30 07/05/20 23 07/06/2023 PTH, INTAC T WITHO UT CALCI UM parathyroid hormone, intact 39 pg/mL 16-77 normal Inter preti ve Guide Intac t PTH Calci um ----- ----- ----- --- ----- ----- ----- -- Raya l Parat hyroi d Raya l Raya l Hypop eli yroid ism Low or Low Raya l Low Hyper parat hyroi dism Prima ry Raya l or High High Secon adelita High Raya l or Low Terti harley High High Non-P eli yroid Hyper calce romulo Low or Low Raya l High Not Available [address] [address] [place], [address], 07/06/2023 15:24:31 07/05/20 23 07/06/2023 PTH, INTAC T WITHO UT CALCI UM copy received from: JO[facility] [place] [facility] KLARISSA [facility] ADMN [address] [place] [address] Not Available [address] [address] [place], [address], 07/06/2023 15:24:31 07/05/20 23 07/06/2023 PROTE IN, TOTAL W/CRE AT, RANDO M URINE creatinine, random urine 124 mg/dL 20-275 normal Not Available [address], [address], 07/06/2023 15:24:31 07/05/20 23 07/06/2023 PROTE IN, TOTAL W/CRE AT, RANDO M URINE protein/crea tinine ratio 129 mg/g_ creat 24-184 normal Not Available [address], [address], 07/06/2023 15:24:31 07/05/20 23 07/06/2023 PROTE IN, TOTAL W/CRE AT, RANDO M URINE protein/crea tinine ratio 0.129 mg/mg _crea t 0.024- 0.184 normal Not Available [address], [address], 07/06/2023 15:24:31 07/05/20 23 07/06/2023 PROTE IN, TOTAL W/CRE AT, RANDO M URINE protein, total, random ur 16 mg/dL 5-24 normal Not Available [address], [address], 07/06/2023 15:24:31 07/05/20 23 07/06/2023 PROTE IN, TOTAL W/CRE AT, RANDO M URINE copy received from: [facility] AD[facility] [address] [facility] [place] [address] Not Available [address], [address], 07/06/2023 15:24:31 07/05/20 23 07/06/2023 PROTE IN, TOTAL W/CRE AT, RANDO M URINE creatinine, random urine 124 mg/dL 20-275 normal Not Available [address] [address] [place], [address], 07/06/2023 15:24:33 07/05/20 23 07/06/2023 PROTE IN, TOTAL W/CRE AT, RANDO M URINE protein/crea tinine ratio 129 mg/g_ creat 24-184 normal Not Available [address] [address] [place], [address], 07/06/2023 15:24:33 07/05/20 23 07/06/2023 PROTE IN, TOTAL W/CRE AT, RANDO M URINE protein/crea tinine ratio 0.129 mg/mg _crea t 0.024- 0.184 normal Not Available [address], [address], 07/06/2023 15:24:33 07/05/20 23 07/06/2023 PROTE IN, TOTAL W/CRE AT, RANDO M URINE protein, total, random ur 16 mg/dL 5-24 normal Not Available [address], [address], 07/06/2023 15:24:33 07/05/20 23 07/06/2023 PROTE IN, TOTAL W/CRE AT, RANDO M URINE copy received from: [facility] [place] [facility] KLARISSA SERVI [facility] AD[facility] [address] [place] [address] Not Available [address], [address], 07/06/2023 15:24:33 01/03/20 24 01/05/2024 LIPID PANEL , STAND ZHANE cholesterol, total 132 mg/dL <200 normal Not Available [address] [address] [place], [address], 01/05/2024 06:39:16 01/03/20 24 01/05/2024 LIPID PANEL , STAND ZHANE HDL cholesterol 44 mg/dL > or = 50 low Not Available [employer] [facility] [address] [place], [address], 01/05/2024 06:39:16 01/03/20 24 01/05/2024 LIPID PANEL , STAND ZHANE triglyceride s 118 mg/dL <150 normal Not Available [employer] [address] [address] [place], [address], 01/05/2024 06:39:16 01/03/20 24 01/05/2024 LIPID PANEL , STAND ZHANE LDL-choleste rol 68 mg/dL _(risa c) normal Refer ence range : <100 Rosanna able range <100 mg/dL for prima ry preve ntion ; <70 mg/dL for patie nts with CHD or diabe tic patie nts with > or = 2 CHD risk facto rs. LDL-C is now calcu lated using the Yasmin terrazas-[facility] mari price n, which is a valid ated novel kristiano d yesi polancote r accur acy than the Fried maegan equat ion in the estim ation of LDL-C . Yasmin terrazas SS et al. MAUREEN. 2013; 310(1 9): 2061- 2068 (http ://ed ucati on.Qu Sadaf [employer]. com/f aq/FA Q164) Not Available [employer] [address] [address] [place], [address], 01/05/2024 06:39:16 01/03/20 24 01/05/2024 LIPID PANEL , STAND ZHANE chol/HDLC ratio 3.0 (calc ) <5.0 normal Not Available [employer] [facility] [address] [place], [address], 01/05/2024 06:39:16 01/03/20 24 01/05/2024 LIPID PANEL , STAND ZHANE non HDL cholesterol 88 mg/dL _(risa c) <130 normal For patie nts with diabe edwin plus 1 major ASCVD risk facto r, treat ing to a non-H DL-C goal of <100 mg/dL (LDL- C of <70 mg/dL ) is consi dered a thera peuti c optio n. Not Available [address], [address], 01/05/2024 06:39:16 01/03/20 24 01/05/2024 PHOSP HATE ( PHOSP HORUS ) phosphate ( phosphorus) 3.6 mg/dL 2.1-4. 3 normal Not Available [address], [address], 01/05/2024 06:39:18 01/03/20 24 01/05/2024 COMPR EHENS JOSE METAB OLIC PANEL glucose 106 mg/dL 65-99 high Fasti ng refer ence inter carlos alberto For someo ne witho ut known diabe edwin, a gluco se value betwe en 100 and 125 mg/dL is consi stent with predi abete s and shoul d be confi rmed with a follo w-up test. Not Available [address], [address], 01/05/2024 06:39:19 01/03/20 24 01/05/2024 COMPR EHENS JOSE METAB OLIC PANEL urea nitrogen (BUN) 23 mg/dL 7-25 normal Not Available [address], [address], 01/05/2024 06:39:19 01/03/20 24 01/05/2024 COMPR EHENS JOSE METAB OLIC PANEL creatinine 1.29 mg/dL 0.60-0 .95 high Not Available [address], [address], 01/05/2024 06:39:19 01/03/20 24 01/05/2024 COMPR EHENS JOSE METAB OLIC PANEL eGFR 41 mL/mi n/1.7 3m2 > or = 60 low Not Available [employer] [address], [address], 01/05/2024 06:39:19 01/03/20 24 01/05/2024 COMPR EHENS JOSE METAB OLIC PANEL BUN/creatini ne ratio 18 (calc ) 6-22 normal Not Available [address], [address], 01/05/2024 06:39:19 01/03/20 24 01/05/2024 COMPR EHENS JOSE METAB OLIC PANEL sodium 142 mmol/ L 135-14 6 normal Not Available [address], [address], 01/05/2024 06:39:19 01/03/20 24 01/05/2024 COMPR EHENS JOSE METAB OLIC PANEL potassium 4.4 mmol/ L 3.5-5. 3 normal Not Available [address], [address], 01/05/2024 06:39:19 01/03/20 24 01/05/2024 COMPR EHENS JOSE METAB OLIC PANEL chloride 102 mmol/ L 98-110 normal Not Available [address], [address], 01/05/2024 06:39:19 01/03/20 24 01/05/2024 COMPR EHENS JOSE METAB OLIC PANEL carbon dioxide 35 mmol/ L 20-32 high Not Available [address], [address], 01/05/2024 06:39:19 01/03/20 24 01/05/2024 COMPR EHENS JOSE METAB OLIC PANEL calcium 10.2 mg/dL 8.6-10 .4 normal Not Available [address], [address], 01/05/2024 06:39:19 01/03/20 24 01/05/2024 COMPR EHENS JOSE METAB OLIC PANEL protein, total 6.3 g/dL 6.1-8. 1 normal Not Available [address], [address], 01/05/2024 06:39:19 01/03/20 24 01/05/2024 COMPR EHENS JOSE METAB OLIC PANEL albumin 4.0 g/dL 3.6-5. 1 normal Not Available [address], [address], 01/05/2024 06:39:19 01/03/20 24 01/05/2024 COMPR EHENS JOSE METAB OLIC PANEL globulin 2.3 g/dL_ (calc ) 1.9-3. 7 normal Not Available [address], [address], 01/05/2024 06:39:19 01/03/20 24 01/05/2024 COMPR EHENS JOSE METAB OLIC PANEL albumin/glob ulin ratio 1.7 (calc ) 1.0-2. 5 normal Not Available [address], [address], 01/05/2024 06:39:19 01/03/20 24 01/05/2024 COMPR EHENS JOSE METAB OLIC PANEL bilirubin, total 0.8 mg/dL 0.2-1. 2 normal Not Available [address], [address], 01/05/2024 06:39:19 01/03/20 24 01/05/2024 COMPR EHENS JOSE METAB OLIC PANEL alkaline phosphatase 79 U/L 37-153 normal Not Available [facility] [address], [address], 01/05/2024 06:39:19 01/03/20 24 01/05/2024 COMPR EHENS JOSE METAB OLIC PANEL AST 15 U/L 10-35 normal Not Available [address], [address], 01/05/2024 06:39:19 01/03/20 24 01/05/2024 COMPR EHENS JOSE METAB OLIC PANEL ALT 17 U/L 6-29 normal Not Available [address], [address], 01/05/2024 06:39:19 01/03/20 24 01/05/2024 CBC (INCL UDES DIFF/ PLT) white blood cell count 6.0 thous and/u L 3.8-10 .8 normal Not Available [address], [address], 01/05/2024 06:39:20 01/03/20 24 01/05/2024 CBC (INCL UDES DIFF/ PLT) red blood cell count 4.55 dillan on/uL 3.80-5 .10 normal Not Available [address], [address], 01/05/2024 06:39:20 01/03/20 24 01/05/2024 CBC (INCL UDES DIFF/ PLT) hemoglobin 14.4 g/dL 11.7-1 5.5 normal Not Available [address], [address], 01/05/2024 06:39:20 01/03/20 24 01/05/2024 CBC (INCL UDES DIFF/ PLT) hematocrit 43.3 % 35.0-4 5.0 normal Not Available [address], [address], 01/05/2024 06:39:20 01/03/20 24 01/05/2024 CBC (INCL UDES DIFF/ PLT) MCV 95.2 fL 80.0-1 00.0 normal Not Available [address], [address], 01/05/2024 06:39:20 01/03/20 24 01/05/2024 CBC (INCL UDES DIFF/ PLT) MCH 31.6 pg 27.0-3 3.0 normal Not Available [address], [address], 01/05/2024 06:39:20 01/03/20 24 01/05/2024 CBC (INCL UDES DIFF/ PLT) MCHC 33.3 g/dL 32.0-3 6.0 normal Not Available [address], [address], 01/05/2024 06:39:20 01/03/20 24 01/05/2024 CBC (INCL UDES DIFF/ PLT) RDW 12.6 % 11.0-1 5.0 normal Not Available [address], [address], 01/05/2024 06:39:20 01/03/20 24 01/05/2024 CBC (INCL UDES DIFF/ PLT) platelet count 220 thous and/u L 140-40 0 normal Not Available [address], [address], 01/05/2024 06:39:20 01/03/20 24 01/05/2024 CBC (INCL UDES DIFF/ PLT) MPV 10.4 fL 7.5-12 .5 normal Not Available [address], [address], 01/05/2024 06:39:20 01/03/20 24 01/05/2024 CBC (INCL UDES DIFF/ PLT) absolute neutrophils 3378 cells /uL 1500-7 800 normal Not Available [address], [address], 01/05/2024 06:39:20 01/03/20 24 01/05/2024 CBC (INCL UDES DIFF/ PLT) absolute lymphocytes 1746 cells /uL 850-39 00 normal Not Available [facility] [address], [address], 01/05/2024 06:39:20 01/03/20 24 01/05/2024 CBC (INCL UDES DIFF/ PLT) absolute monocytes 612 cells /uL 200-95 0 normal Not Available [facility] [address], [address], 01/05/2024 06:39:20 01/03/20 24 01/05/2024 CBC (INCL UDES DIFF/ PLT) absolute eosinophils 222 cells /uL 15-500 normal Not Available [facility] [address], [address], 01/05/2024 06:39:20 01/03/20 24 01/05/2024 CBC (INCL UDES DIFF/ PLT) absolute basophils 42 cells /uL 0-200 normal Not Available [facility] [address], [address], 01/05/2024 06:39:20 01/03/20 24 01/05/2024 CBC (INCL UDES DIFF/ PLT) neutrophils 56.3 % normal Not Available [facility] [address], [address], 01/05/2024 06:39:20 01/03/20 24 01/05/2024 CBC (INCL UDES DIFF/ PLT) lymphocytes 29.1 % normal Not Available [facility] [address], [address], 01/05/2024 06:39:20 01/03/20 24 01/05/2024 CBC (INCL UDES DIFF/ PLT) monocytes 10.2 % normal Not Available [facility] [address], [address], 01/05/2024 06:39:20 01/03/20 24 01/05/2024 CBC (INCL UDES DIFF/ PLT) eosinophils 3.7 % normal Not Available [facility] [address], [address], 01/05/2024 06:39:20 01/03/20 24 01/05/2024 CBC (INCL UDES DIFF/ PLT) basophils 0.7 % normal Not Available [address], [address], 01/05/2024 06:39:20 01/03/20 24 01/05/2024 URINA LYSIS , COMPL ETE W/REF NERISSA TO CULTU RE color YELLOW yellow normal Not Available [facility] [address], [address], 01/05/2024 06:39:21 01/03/20 24 01/05/2024 URINA LYSIS , COMPL ETE W/REF NERISSA TO CULTU RE appearance CLEAR clear normal Not Available [address], [address], 01/05/2024 06:39:21 01/03/20 24 01/05/2024 URINA LYSIS , COMPL ETE W/REF NERISSA TO CULTU RE specific gravity 1.012 1.001- 1.035 normal Not Available [address], [address], 01/05/2024 06:39:21 01/03/20 24 01/05/2024 URINA LYSIS , COMPL ETE W/REF NERISSA TO CULTU RE pH 6.5 5.0-8. 0 normal Not Available [address], [address], 01/05/2024 06:39:21 01/03/20 24 01/05/2024 URINA LYSIS , COMPL ETE W/REF NERISSA TO CULTU RE glucose NEGATI VE negati ve normal Not Available [facility] [address], [address], 01/05/2024 06:39:21 01/03/20 24 01/05/2024 URINA LYSIS , COMPL ETE W/REF NERISSA TO CULTU RE bilirubin NEGATI VE negati ve normal Not Available [address], [address], 01/05/2024 06:39:21 01/03/20 24 01/05/2024 URINA LYSIS , COMPL ETE W/REF NERISSA TO CULTU RE ketones NEGATI VE negati ve normal Not Available [address], [address], 01/05/2024 06:39:21 01/03/20 24 01/05/2024 URINA LYSIS , COMPL ETE W/REF NERISSA TO CULTU RE occult blood NEGATI VE negati ve normal Not Available [address], [address], 01/05/2024 06:39:21 01/03/20 24 01/05/2024 URINA LYSIS , COMPL ETE W/REF NERISSA TO CULTU RE protein NEGATI VE negati ve normal Not Available [address], [address], 01/05/2024 06:39:21 01/03/20 24 01/05/2024 URINA LYSIS , COMPL ETE W/REF NERISSA TO CULTU RE nitrite NEGATI VE negati ve normal Not Available [address], [address], 01/05/2024 06:39:21 01/03/20 24 01/05/2024 URINA LYSIS , COMPL ETE W/REF NERISSA TO CULTU RE leukocyte esterase 3+ negati ve abnormal Not Available [address], [address], 01/05/2024 06:39:21 01/03/20 24 01/05/2024 URINA LYSIS , COMPL ETE W/REF NERISSA TO CULTU RE WBC 10-20 /hpf < or = 5 abnormal Not Available [address] [place], [address], 01/05/2024 06:39:21 01/03/20 24 01/05/2024 URINA LYSIS , COMPL ETE W/REF NERISSA TO CULTU RE RBC NONE SEEN /hpf < or = 2 normal Not Available [address], [address], 01/05/2024 06:39:21 01/03/20 24 01/05/2024 URINA LYSIS , COMPL ETE W/REF NERISSA TO CULTU RE squamous epithelial cells 0-5 /hpf < or = 5 Not Available [address], [address], 01/05/2024 06:39:21 01/03/20 24 01/05/2024 URINA LYSIS , COMPL ETE W/REF NERISSA TO CULTU RE bacteria NONE SEEN /hpf none seen normal Not Available [address], [address], 01/05/2024 06:39:21 01/03/20 24 01/05/2024 URINA LYSIS , COMPL ETE W/REF NERISSA TO CULTU RE hyaline cast NONE SEEN /lpf none seen normal Not Available [address], [address], 01/05/2024 06:39:21 01/03/20 24 01/05/2024 URINA LYSIS , COMPL ETE W/REF NERISSA TO CULTU RE note This urine was mika zed for the prese nce of WBC, RBC, bacte mario, casts , and other forme d eleme nts. Only those eleme nts seen were repor ayush. Not Available [address], [address], 01/05/2024 06:39:21 01/03/20 24 01/05/2024 REFLE XIVE URINE CULTU RE reflexive urine culture CULTU RE INDIC ATED - RESUL TS TO FOLLO W Not Available [facility] [address] [place], [address], 01/05/2024 06:39:23 01/03/20 24 01/05/2024 PTH, INTAC T WITHO UT CALCI UM parathyroid hormone, intact 38 pg/mL 16-77 normal Inter preti ve Guide Intac t PTH Calci um ----- ----- ----- --- ----- ----- ----- -- Raya l Parat hyroi d Raya l Raya l Hypop eli yroid ism Low or Low Raya l Low Hyper parat hyroi dism Prima ry Raya l or High High Secon adelita High Raya l or Low Terti harley High High Non-P eli yroid Hyper calce romulo Low or Low Raya l High Not Available [employer] [facility] [address] [place], [address], 01/05/2024 06:39:23 01/03/20 24 01/05/2024 VITAM IN D,25- OH,TO ARLENE,I A vitamin D,25-oh,tota l,ia 69 NG/mL 30-100 normal Vitam in D Statu s 25-OH Vitam in D: Defic iency : <20 ng/mL Insuf ficie ncy: 20 - 29 ng/mL Optim al: > or = 30 ng/mL For 25-OH Vitam in D testi ng on patie nts on D2-liao pplem entat ion and patie nts for whom quant itati on of D2 and D3 fract ions is requi red, the [facility] e[facility](TM ) 25-OH VIT D, (D2,D 3), LC/MS /MS is recom bernie d: order code 25290 (jerica ents >2yrs ). See Note 1 Note 1 For addit ional ta moon refer to http: //audrey Young gnost ics.c om/fa q/FAQ 199 (This link is being provi ded for infor josef marie/ educjulianna salvador purpo ses only. ) Not Available [address] [address] [place], [address], 01/05/2024 06:39:24 01/03/20 24 01/05/2024 CULTU RE, URINE , ROUTI NE culture, urine, routine SEE NOTE abnormal CULTU RE, URINE , ROUTI NE Micro Numbe r: [id number] Test Statu s: Final Speci men Sourc e: Urine Speci men Quali ty: Adequ ate Resul t: 10,00 0-49, 000 CFU/m L of Coagu lase negat jose staph yloco ccus, not S. sapro phyti cus May repre sent colon izers from exter nal and inter nal genit christine. No furth er testi ng (incl uding susce ptibi lity) will be perfo rmed. COMME NT: Addit ional non-p redom inati ng organ ism(s ) isola ayush. These organ isms, commo nly found on exter nal and inter nal genit christine, are consi dered colon izers . No furth er testi ng perfo rmed. Not Available [address] [address] [address] , [place], [address], 01/05/2024 06:39:25 07/09/20 24 07/10/2024 PHOSP HATE ( PHOSP HORUS ) phosphate ( phosphorus) 3.1 mg/dL 2.1-4. 3 normal Not Available [address] [address] [place], [address], 07/10/2024 20:50:40 07/09/20 24 07/10/2024 COMPR EHENS JOSE METAB OLIC PANEL glucose 104 mg/dL 65-99 high Fasti ng refer ence inter carlos alberto For someo ne witho ut known diabe edwin, a gluco se value betwe en 100 and 125 mg/dL is consi stent with predi abete s and shoul d be confi rmed with a follo w-up test. Not Available [address] [address] [place], [address], 07/10/2024 20:50:41 07/09/20 24 07/10/2024 COMPR EHENS JOSE METAB OLIC PANEL urea nitrogen (BUN) 23 mg/dL 7-25 normal Not Available [address], [address], 07/10/2024 20:50:41 07/09/20 24 07/10/2024 COMPR EHENS JOSE METAB OLIC PANEL creatinine 1.30 mg/dL 0.60-0 .95 high Not Available [address], [address], 07/10/2024 20:50:41 07/09/20 24 07/10/2024 COMPR EHENS JOSE METAB OLIC PANEL eGFR 40 mL/mi n/1.7 3m2 > or = 60 low Not Available [address], [address], 07/10/2024 20:50:41 07/09/20 24 07/10/2024 COMPR EHENS JOSE METAB OLIC PANEL BUN/creatini ne ratio 18 (calc ) 6-22 normal Not Available [address], [address], 07/10/2024 20:50:41 07/09/20 24 07/10/2024 COMPR EHENS JOSE METAB OLIC PANEL sodium 139 mmol/ L 135-14 6 normal Not Available [address], [address], 07/10/2024 20:50:41 07/09/20 24 07/10/2024 COMPR EHENS JOSE METAB OLIC PANEL potassium 4.1 mmol/ L 3.5-5. 3 normal Not Available [address], [address], 07/10/2024 20:50:41 07/09/20 24 07/10/2024 COMPR EHENS JOSE METAB OLIC PANEL chloride 100 mmol/ L 98-110 normal Not Available [address], [address], 07/10/2024 20:50:41 07/09/20 24 07/10/2024 COMPR EHENS JOSE METAB OLIC PANEL carbon dioxide 32 mmol/ L 20-32 normal Not Available [address], [address], 07/10/2024 20:50:41 07/09/20 24 07/10/2024 COMPR EHENS JOSE METAB OLIC PANEL calcium 10.1 mg/dL 8.6-10 .4 normal Not Available [address], [address], 07/10/2024 20:50:41 07/09/20 24 07/10/2024 COMPR EHENS JOSE METAB OLIC PANEL protein, total 6.3 g/dL 6.1-8. 1 normal Not Available 14 [address], [address], 07/10/2024 20:50:41 07/09/20 24 07/10/2024 COMPR EHENS JOSE METAB OLIC PANEL albumin 4.1 g/dL 3.6-5. 1 normal Not Available [address], [address], 07/10/2024 20:50:41 07/09/20 24 07/10/2024 COMPR EHENS JOSE METAB OLIC PANEL globulin 2.2 g/dL_ (calc ) 1.9-3. 7 normal Not Available [address], [address], 07/10/2024 20:50:41 07/09/20 24 07/10/2024 COMPR EHENS JOSE METAB OLIC PANEL albumin/glob ulin ratio 1.9 (calc ) 1.0-2. 5 normal Not Available [address] [place], [address], 07/10/2024 20:50:41 07/09/20 24 07/10/2024 COMPR EHENS JOSE METAB OLIC PANEL bilirubin, total 0.7 mg/dL 0.2-1. 2 normal Not Available [address], [address], 07/10/2024 20:50:41 07/09/20 24 07/10/2024 COMPR EHENS JOSE METAB OLIC PANEL alkaline phosphatase 73 U/L 37-153 normal Not Available [address], [address], 07/10/2024 20:50:41 07/09/2007/10/2024 COMPR EHENS JOSE METAB OLIC PANEL AST 17 U/L 10-35 normal Not Available [address], [address], 07/10/2024 20:50:41 07/09/20 24 07/10/2024 COMPR EHENS JOSE METAB OLIC PANEL ALT 22 U/L 6-29 normal Not Available [address], [address], 07/10/2024 20:50:41 07/09/20 24 07/10/2024 CBC (INCL UDES DIFF/ PLT) white blood cell count 6.3 thous and/u L 3.8-10 .8 normal Not Available [address], [address], 07/10/2024 20:50:42 07/09/2007/10/2024 CBC (INCL UDES DIFF/ PLT) red blood cell count 4.62 dillan on/uL 3.80-5 .10 normal Not Available [address], [address], 07/10/2024 20:50:42 07/09/20 24 07/10/2024 CBC (INCL UDES DIFF/ PLT) hemoglobin 14.6 g/dL 11.7-1 5.5 normal Not Available [address], [address], 07/10/2024 20:50:42 07/09/20 24 07/10/2024 CBC (INCL UDES DIFF/ PLT) hematocrit 44.4 % 35.0-4 5.0 normal Not Available [address], [address], 07/10/2024 20:50:42 07/09/20 24 07/10/2024 CBC (INCL UDES DIFF/ PLT) MCV 96.1 fL 80.0-1 00.0 normal Not Available [address], [address], 07/10/2024 20:50:42 07/09/20 24 07/10/2024 CBC (INCL UDES DIFF/ PLT) MCH 31.6 pg 27.0-3 3.0 normal Not Available [address], [address], 07/10/2024 20:50:42 07/09/20 24 07/10/2024 CBC (INCL UDES DIFF/ PLT) MCHC 32.9 g/dL 32.0-3 6.0 normal For adult s, a sligh t decre ase in the calcu lated MCHC value (in the range of 30 to 32 g/dL) is most likel y not clini mitch signi fican t; vu er, it shoul d be inter prete d with cauti on in corre latio n with other red cell pratima eters and the patie nt's clini risa condi tion. Not Available [address], [address], 07/10/2024 20:50:42 07/09/20 24 07/10/2024 CBC (INCL UDES DIFF/ PLT) RDW 12.6 % 11.0-1 5.0 normal Not Available [address], [address], 07/10/2024 20:50:42 07/09/2007/10/2024 CBC (INCL UDES DIFF/ PLT) platelet count 207 thous and/u L 140-40 0 normal Not Available [address], [address], 07/10/2024 20:50:42 07/09/20 24 07/10/2024 CBC (INCL UDES DIFF/ PLT) MPV 10.4 fL 7.5-12 .5 normal Not Available [address], [address], 07/10/2024 20:50:42 07/09/2007/10/2024 CBC (INCL UDES DIFF/ PLT) absolute neutrophils 3465 cells /uL 1500-7 800 normal Not Available [address], [address], 07/10/2024 20:50:42 07/09/2007/10/2024 CBC (INCL UDES DIFF/ PLT) absolute lymphocytes 1884 cells /uL 850-39 00 normal Not Available [address], [address], 07/10/2024 20:50:42 07/09/20 24 07/10/2024 CBC (INCL UDES DIFF/ PLT) absolute monocytes 687 cells /uL 200-95 0 normal Not Available [address], [address], 07/10/2024 20:50:42 07/09/20 24 07/10/2024 CBC (INCL UDES DIFF/ PLT) absolute eosinophils 233 cells /uL 15-500 normal Not Available [address], [address], 07/10/2024 20:50:42 07/09/20 24 07/10/2024 CBC (INCL UDES DIFF/ PLT) absolute basophils 32 cells /uL 0-200 normal Not Available [address], [address], 07/10/2024 20:50:42 07/09/20 24 07/10/2024 CBC (INCL UDES DIFF/ PLT) neutrophils 55 % normal Not Available [address], [address], 07/10/2024 20:50:42 07/09/20 24 07/10/2024 CBC (INCL UDES DIFF/ PLT) lymphocytes 29.9 % normal Not Available [address], [address], 07/10/2024 20:50:42 07/09/20 24 07/10/2024 CBC (INCL UDES DIFF/ PLT) monocytes 10.9 % normal Not Available [address], [address], 07/10/2024 20:50:42 07/09/20 24 07/10/2024 CBC (INCL UDES DIFF/ PLT) eosinophils 3.7 % normal Not Available [address], [address], 07/10/2024 20:50:42 07/09/20 24 07/10/2024 CBC (INCL UDES DIFF/ PLT) basophils 0.5 % normal Not Available [address], [address], 07/10/2024 20:50:42 07/09/2007/10/2024 URINA LYSIS , COMPL ETE W/REF NERISSA TO CULTU RE color YELLOW yellow normal Not Available [address], [address], 07/10/2024 20:50:43 07/09/2007/10/2024 URINA LYSIS , COMPL ETE W/REF NERISSA TO CULTU RE appearance CLEAR clear normal Not Available [address], [address], 07/10/2024 20:50:43 07/09/2007/10/2024 URINA LYSIS , COMPL ETE W/REF NERISSA TO CULTU RE specific gravity 1.014 1.001- 1.035 normal Not Available [address], [address], 07/10/2024 20:50:43 07/09/2007/10/2024 URINA LYSIS , COMPL ETE W/REF NERISSA TO CULTU RE pH 7.0 5.0-8. 0 normal Not Available [address], [address], 07/10/2024 20:50:43 07/09/2007/10/2024 URINA LYSIS , COMPL ETE W/REF NERISSA TO CULTU RE glucose NEGATI VE negati ve normal Not Available [address], [address], 07/10/2024 20:50:43 07/09/2007/10/2024 URINA LYSIS , COMPL ETE W/REF NERISSA TO CULTU RE bilirubin NEGATI VE negati ve normal Not Available [address], [address], 07/10/2024 20:50:43 07/09/2007/10/2024 URINA LYSIS , COMPL ETE W/REF NERISSA TO CULTU RE ketones NEGATI VE negati ve normal Not Available [address], [address], 07/10/2024 20:50:43 07/09/2007/10/2024 URINA LYSIS , COMPL ETE W/REF NERISSA TO CULTU RE occult blood NEGATI VE negati ve normal Not Available [facility] [place] [address] [address] n, [place], [address], 07/10/2024 20:50:43 07/09/20 24 07/10/2024 URINA LYSIS , COMPL ETE W/REF NERISSA TO CULTU RE protein TRACE negati ve abnormal Not Available [address], [address], 07/10/2024 20:50:43 07/09/20 24 07/10/2024 URINA LYSIS , COMPL ETE W/REF NERISSA TO CULTU RE nitrite NEGATI VE negati ve normal Not Available [address], [address], 07/10/2024 20:50:43 07/09/20 24 07/10/2024 URINA LYSIS , COMPL ETE W/REF NERISSA TO CULTU RE leukocyte esterase TRACE negati ve abnormal Not Available [address], [address], 07/10/2024 20:50:43 07/09/2007/10/2024 URINA LYSIS , COMPL ETE W/REF NERISSA TO CULTU RE WBC 0-5 /hpf < or = 5 normal Not Available [address], [address], 07/10/2024 20:50:43 07/09/20 24 07/10/2024 URINA LYSIS , COMPL ETE W/REF NERISSA TO CULTU RE RBC NONE SEEN /hpf < or = 2 normal Not Available [address], [address], 07/10/2024 20:50:43 07/09/20 24 07/10/2024 URINA LYSIS , COMPL ETE W/REF NERISSA TO CULTU RE squamous epithelial cells 0-5 /hpf < or = 5 Not Available [address], [address], 07/10/2024 20:50:43 07/09/20 24 07/10/2024 URINA LYSIS , COMPL ETE W/REF NERISSA TO CULTU RE bacteria NONE SEEN /hpf none seen normal Not Available [address], [address], 07/10/2024 20:50:43 07/09/20 24 07/10/2024 URINA LYSIS , COMPL ETE W/REF NERISSA TO CULTU RE hyaline cast NONE SEEN /lpf none seen normal Not Available [address], [address], 07/10/2024 20:50:43 07/09/2007/10/2024 URINA LYSIS , COMPL ETE W/REF NERISSA TO CULTU RE note This urine was mika zed for the prese nce of WBC, RBC, bacte mario, casts , and other forme d eleme nts. Only those eleme nts seen were repor ayush. Not Available [address], [address], 07/10/2024 20:50:43 07/09/20 24 07/10/2024 REFLE XIVE URINE CULTU RE reflexive urine culture CULTU RE INDIC ATED - RESUL TS TO FOLLO W Not Available [address] [place], [address], 07/10/2024 20:50:45 07/09/20 24 07/10/2024 PTH, INTAC T WITHO UT CALCI UM parathyroid hormone, intact 45 pg/mL 16-77 normal Inter preti ve Guide Intac t PTH Calci um ----- ----- ----- --- ----- ----- ----- -- Raya l Parat hyroi d Raya l Raya l Hypop eli yroid ism Low or Low Raya l Low Hyper parat hyroi dism Prima ry Raya l or High High Secon adelita High Raya l or Low Terti harley High High Non-P eli yroid Hyper calce romulo Low or Low Raya l High Not Available [facility] [address] [place], [address], 07/10/2024 20:50:45 07/09/20 24 07/10/2024 T4, FREE T4, free 1.1 NG/dL 0.8-1. 8 normal Not Available [facility] [place] [address] [place], [address], 07/10/2024 20:50:46 07/09/20 24 07/10/2024 TSH TSH 2.45 mIU/L 0.40-4 .50 normal Not Available [facility] [place] [address] [place], [address], 07/10/2024 20:50:47 07/09/20 24 07/10/2024 VITAM IN D,25- OH,TO ARLENE,I A vitamin D,25-oh,tota l,ia 57 NG/mL 30-100 normal Vitam in D Statu s 25-OH Vitam in D: Defic iency : <20 ng/mL Insuf ficie ncy: 20 - 29 ng/mL Optim al: > or = 30 ng/mL For 25-OH Vitam in D testi ng on patie nts on D2-liao pplem entat ion and patie nts for whom quant itati on of D2 and D3 fract ions is requi red, the [facility] Ass[facility] eD(TM ) 25-OH VIT D, (D2,D 3), LC/MS /MS is recom bernie d: order code 31605 (jerica ents >2yrs ). See Note 1 Note 1 For addit ional infor ta cary refer to http: //audrey Young gnost ics.c om/fa q/FAQ 199 (This link is being provi ded for infor josef marie/ nathaniel salvador purpo ses only. ) Not Available [employer] [facility] [place] [address] [place], [address], 07/10/2024 20:50:48 07/09/20 24 07/10/2024 CULTU RE, URINE , ROUTI NE culture, urine, routine SEE NOTE CULTU RE, URINE , ROUTI NE Micro Numbe r: [id number] Test Statu s: Final Speci men Sourc e: Urine Speci men Quali ty: Adequ ate Resul t: Mixed genit al es isola ayush. These super ficia l bacte mario are not indic ative of a urina ry tract infec tion. No furth er organ ism ident ifica tion is warra nted on this speci men. If clini mitch indic ated, recol lect clean -catc h, mid-s tream urine and trans brenda immed iatel y to Urine Cultu re Trans port Tube. Not Available [employer] [facility] [address] [address] , [place], [address], 07/10/2024 20:50:49 01/07/20 25 01/06/2025 XR, hip + pelvi s, bilat eral No observ ation record ed. [address], [place], [address], 01/06/2025 14:32:55 01/07/20 25 01/06/2025 XR, lumba r spine No observ ation record ed. [address], [place], [address], 01/06/2025 14:35:38 Result Notes None recorded. Problems Name Problem SNOMED Code Status Onset Date Resolution Date Notes Provider Name and Address Organization Details Recorded Time Renewal of prescription Active 2021 Not Available [facility] 3 14:11:38 Pure hypercholeste rolemia 707800987 Active Not Available [facility] 3 14:11:38 Age related macular degeneration 041014088 Active Not Available [facility] 3 14:11:38 Shoulder joint pain 280695097 Active Not Available [facility] 3 14:11:38 Osteopenia 566824411 Active 2021 Not Available [facility] 3 14:11:38 Vitamin D deficiency 62927124 Active Not Available [facility] 3 14:11:38 Exudative age-related macular degeneration 828600718 Active 2021 Not Available [facility] 3 14:11:39 Coronary arteriosclero sis 76560969 Active Not Available [facility] 3 14:11:39 Carotid artery stenosis 55615712 Active Not Available [facility] 3 14:11:39 Osteoporosis 86443494 Active 2021 Not Available [facility] 3 14:11:39 Chronic kidney disease stage 3A 506078544 Active 2019 Not Available [facility] 3 14:11:39 Serum creatinine above reference range 349891449 Active 2022 Giovanna Buck CMA null, [place] revoPT [facility] [employer] [facility] 3 14:54:09 Essential hypertension 17460053 Active 2023 Giovanna Buck CMA null, [employer] [facility] 4 14:02:31 Hip pain 70413826 Active 2024 Ami Major MD [address] [place] [address], [address] , [facility] revoPT S [employer] [facility] 5 15:14:00 Low back pain 440833539 Active 2024 Daisy Estrada null, [place] revoPT [employer] [facility] 5 15:23:14 Problem Notes None recorded. Procedures Surgical History None recorded. Imaging Results Imaging Date Name Status LastModified by Organiz ation Details LastModified Time 01/06/2025 XR, hip + pelvis, bilateral active [address] [place] [address], [address], 01/06/2025 14:32:55 01/06/2025 XR, lumbar spine active [address], [address], 01/06/2025 14:35:38 Procedure Notes None recorded. Medical Equipment None Reported. Allergies Allergen ID Allergen Name Allergen Category Reaction Reaction Severity Criticality Documentation Date Start Date Code Code System Note Provider Name and Address Organization Details Recorded Time 34181 lisinopri l medicatio n cough Not available Not available 11/28/2022 06342 RxNorm Not Available [facility] 3 14:14:24 Medications Name Sig Start [...] completed Not Available Not Available Not Available [place] 3 1000mg twice a day 07/02 completed [...] and Address Organization Details Last Updated DateTime 3 161.29 cm 26 kg/m2 83455.2 6 g 71 /min 96.9 [degF] 97 % 97 % 138 mm[Hg] 72 mm[Hg] Cande Ramos Jorge Luis [place] [employer] [facility] 3 14:52:12 Date Recorded Body height Body mass index (BMI) Body weight Heart rate Body temperature Oxygen saturation Oxygen saturation in Arterial blood by Pulse oximetry Systolic blood pressure Diastolic blood pressure Provider Name and Address Organization Details Last Updated DateTime 3 161.29 cm 24.6 kg/m2 68480.5 2 g 76 /min 97 [degF] 97 % 97 % 120 mm[Hg] 62 mm[Hg] Cande Ramirez [employer] [facility] 3 15:21:02 Date Recorded Body height Body mass index (BMI) Body weight Heart rate Body temperature Oxygen saturation Oxygen saturation in Arterial blood by Pulse oximetry Systolic blood pressure Diastolic blood pressure Provider Name and Address Organization Details Last Updated DateTime 4 161.29 cm 24.2 kg/m2 00849.3 4 g 72 /min 97 [degF] 98 % 98 % 148 mm[Hg] 80 mm[Hg] Cande Ramirez [employer] 4 15:35:36 Date Recorded Body height Body mass index (BMI) Body weight Heart rate Body temperature Oxygen saturation Oxygen saturation in Arterial blood by Pulse oximetry Systolic blood pressure Diastolic blood pressure Provider Name and Address Organization Details Last Updated DateTime 4 161.29 cm 24.4 kg/m2 20798.9 3 g 77 /min 97 [degF] 97 % 97 % 142 mm[Hg] 78 mm[Hg] Cande Ramirez [employer] [facility] 4 15:07:12 Date Recorded Body height Body mass index (BMI) Body weight Heart rate Body temperature Oxygen saturation Oxygen saturation in Arterial blood by Pulse oximetry Systolic blood pressure Diastolic blood pressure Provider Name and Address Organization Details Last Updated DateTime 5 161.29 cm 24.8 kg/m2 44786.1 2 g 76 /min 97 [degF] 97 % 97 % 120 mm[Hg] 64 mm[Hg] Cande Ramirez [employer] 5 15:03:28 Social History Question Answer Notes LastModified by Organizat ion Details LastModified Time Are You Blind Or Do You Have Difficulty Seeing? No [id number] Information not available 11/28/2022 In The 14 Days Before Symptom Onset, Have You Had Close Contact With A Laboratory-confirme d COVID-19 While That Case Was Ill? No [id number] Information not available 11/28/2022 In The 14 Days Before Symptom Onset, Have You Had Close Contact With A Person Who Is Under Investigation For COVID-19 While That Person Was Ill? No [id number] Information not available 11/28/2022 Are You Deaf Or Do You Have Serious Difficulty Hearing? No [id number].[id number] 26 Information not available 11/28/2022 Have You Recently Traveled Abroad? No [id number] 26 Information not available 11/28/2022 Sex: Unknown Functional Status Question Answer Note LastModified by Organizat ion Details LastModified Time Do you have difficulty walking or climbing stairs? No [id number] Information not available 11/28/2022 Do you have transportation difficulties? No [id number].[id number] 026 Information not available 11/28/2022 Are you able to walk? YESWOREST MIGRATION.[id number] 026 Information not available 11/28/2022 Do you have difficulty doing errands alone? No MIGRATION.[id number] 026 Information not available 11/28/2022 Are you able to care for yourself? Yes [id number].[id number] 026 Information not available 11/28/2022 Do you have difficulty dressing or bathing? No MIGRATION.[id number] 026 Information not available 11/28/2022 Mental Status Question Answer Note LastModified by Organizat ion Details LastModified Time Do you have difficulty concentrating, remembering or making decisions? No [id number].[id number] Information not available 11/28/2022 Family History Nothing Reported Notes:Mother 70+ of DIANA D, CVA Father at 62 from [place] and [place] Three brothers two living one with hx of ASHD and one of cardiac problems One sister living with cardiac problems. Medical History Condition Response NERVE DISEASE N BLINDNESS N RHEUMATIC FEVER N KIDNEY STONES N BLADDER PROBLEMS N MRSA N OTHER # 1 N POLIO N LUNG DISEASE/DISORDER N COPD N RADIATION / CHEMOTHERAPY N Other # 2 N BLOOD DISEASES N EAR OR HEARING PROBLEMS N MUMPS N BOWEL PROBLEMS N DEPRESSION (INCLUDING POST ) N STROKE/TIA N ULCERS N BENIGN PROSTATIC HYPERPLASIA N MEASLES N MYOCARDIAL INFARCTION N OBESITY N GERD/NAUSEA N ANEURYSM N URINARY/BLADDER/KIDNEY PROBLEMS N CORONARY ARTERY DISEASE (CAD) Y ADDICTION CONCERNS N ENDOMETRIOSIS N Impotence N USE OF BLOOD THINNERS N SKIN [...] APNEA N CHICKENPOX N INFECTIOUS DISEASE N HEART ARRHYTHMIA N PROSTATE N INSOMNIA N HIGH CHOLESTEROL / HYPERLIPIDEMIA Y HYPERTHYROIDISM N EYE PROBLEMS Y EDEMA N CHRONIC PAIN SYNDROME N HYPOTHYROIDISM N CAROTID BLOCKAGE N CONSTIPATION N BACK / NECK PROBLEMS N HAVE YOU BEEN HOSPITALIZED OR SEEN IN [facility] IN THE PAST YEAR ? N ATHEROSCLEROSIS N BREAST PROBLEMS N DIALYSIS N ECZEMA N OSTEOPOROSIS N ARTHRITIS N NO SIGNIFICANT PAST MEDICAL HISTORY N APPENDICITIS N DIABETES, TYPE N BAD TEETH N ENT N HEARTBURN / REFLUX N AUTISM SPECTRUM DISORDER (ASD) N HEPATITIS / LIVER DISEASE N GOUT N SLEEP DISORDER N ALZHEIMER'S DISEASE N Brain Problems N HERPES N DEMENTIA N HEADACHES/MIGRAINES N SEIZURES/EPILEPSY N VASCULAR DISEASE N PACEMAKER N Blood Disorder N DIZZINESS N HEART DISEASE/HEART PROBLEMS N KIDNEY DISEASE N MULTIPLE SCLEROSIS N CARDIAC ARRHYTHMIA N CANCER: SPECIFY N ATRIAL FIBRILLATION N Gall Stones N PULMONARY EMBOLISM N AUTOIMMUNE DISEASE N Gynecological HistoryNo gynecological history recorded. Obstetrics History GPAL:G 0 P 0 0 0 0 Immunizations Vaccine Type Date Status Note Provider Nam e and Address Organization Details Recorded Time Influenza, high-dose, quadrivalent, PF 3 completed Ami Major MD [address], [address], [facility] [employer] 07/02/2023 15:36:32 Influenza, high-dose, trivalent, PF 4 completed Ami Major MD [address], [address], [facility] [employer] 07/07/2024 15:34:20 Pneumococcal conjugate PCV20, polysaccharide [id number] conjugate, adjuvant, PF 4 completed Ami Major MD [address], [address], [facility] [employer] [facility] 07/07/2024 15:34:20 Influenza, split virus, trivalent, preservative 3 completed Not Available [facility] 11/28/2022 14:14:21 SARS-COV-2 (COVID-19) vaccine, UNSPECIFIED 1 completed Not Available [facility] 11/28/2022 14:14:21 SARS-COV-2 (COVID-19) vaccine, UNSPECIFIED 1 completed Not Available [facility] 11/28/2022 14:14:21 Influenza, split virus, quadrivalent, preservative 2 completed Not Available [facility] 11/28/2022 14:14:21 COVID-19, mRNA, LNP-S, PF, 30 mcg/0.3 mL dose 2 completed Not Available [facility] 11/28/2022 14:14:21 COVID-19, mRNA, LNP-S, PF, 30 mcg/0.3 mL dose 1 completed Not Available [facility] 11/28/2022 14:14:21 Influenza, split virus, quadrivalent, preservative 1 completed Not Available [facility] 11/28/2022 14:14:21 Influenza, high-dose, trivalent, PF 8 completed Not Available [facility] 11/28/2022 14:14:21 Influenza, high-dose, trivalent, PF 7 completed Not Available [facility] 11/28/2022 14:14:22 Influenza, high-dose, trivalent, PF 6 completed Not Available [facility] 11/28/2022 14:14:22 Pneumococcal conjugate PCV 13 7 completed Not Available [facility] 11/28/2022 14:14:22 Influenza, split virus, quadrivalent, preservative 5 completed Not Available [facility] 11/28/2022 14:14:22 Influenza, high-dose, trivalent, PF 4 completed Not Available [facility] 11/28/2022 14:14:22 Past Encounters Encounter ID Performer Location Encounter Start Date Encounter Closed Date Diagnosis/Indication Diagnosis SNOMED-CT Code Diagnosis ICD10 Code Diagnosis Note [id number] [facility] Internal Med [place] nolasco [address] [place] [address] 04/11/2021 00:00:00 04/11/2021 16:39:46 [id number] [facility] Internal Med [place] [address] [facility] [address] , [place] [address] 10/10/2021 00:00:00 10/10/2021 16:28:21 [id number] [facility] Internal Med [place] [address] [facility] [address] , [place] [address] 06/12/2022 00:00:00 06/12/2022 15:17:13 [id number] Ami Major MD [facility] Internal Med [place] [address] [place] [address] y , [place] [address] 01/01/2023 14:48:42 01/01/2023 15:10:30 Coronary arteriosclerosis 59324299 I25.10 Pure hypercholesterolemia 072421277 E78.00 Chronic ki dney disease stage 3A 609034637 N18.31 Benign ess ential hypertension 7202647 I10 [id number] Ami Major MD [facility] Internal [facility] [place] [address] [place] [address] y , [place] [address] 07/02/2023 14:46:51 07/02/2023 15:45:32 Administration of influenza vaccine 45370448 Z23 Coronary arteriosclerosis 45877155 I25.10 Benign ess ential hypertension 7418057 I10 Pure hypercholesterolemia 719459483 E78.00 Chronic ki dney disease stage 3A 259616719 N18.31 [id number] Ami Major MD [facility] Internal [facility] [place] [address] [place] [address] y , [place] [address] 12/31/2023 14:59:09 12/31/2023 15:57:05 Coronary arteriosclerosis 66767950 I25.10 Benign ess ential hypertension 0896277 I10 Pure hypercholesterolemia 778855429 E78.00 Chronic ki dney disease stage 3A 582179882 N18.31 [id number] Ami Major MD [facility] Internal Med [place] [address] [place] [address] [place] [address] 07/07/2024 14:58:31 07/07/2024 15:40:51 Administration of influenza vaccine 40717465 Z23 Coronary arteriosclerosis 83254615 I25.10 Benign ess ential hypertension 2047278 I10 Pure hypercholesterolemia 035379520 E78.00 Chronic ki dney disease stage 3A 126752379 N18.31 Administra tion of pneumococcal vaccine 95826850 Z23 [id number] Ami Major MD [facility] [address] [facility] [address] [place] [address] 01/05/2025 14:49:03 01/05/2025 15:29:17 Coronary arteriosclerosis 54343378 I25.10 Essential hypertension 14133372 I10 Pure hypercholesterolemia 997755513 E78.00 Hip pain 46779619 M25.55 9 Chronic ki dney disease stage 3A 252412307 N18.31 Health Concerns Section Related Observation LastModified by Organization Detai ls LastModified Time None Recorded Concern Status LastModified by Organization Details LastModified Time None Recorded Advance Directives Directive None Recorded Payers Encounter Date Sequence Insurance Name Policy Number Policy Larose Covered Member ID Larose Member ID Guarantor Name 01/01/2023 1 [place] Yani W Herron [id number] Yani W Herron 01/01/2023 2 [place] [id number] Yani W Gopal [id number] Yani W Herron 07/02/2023 1 [place] (MEDICARE) Yani W Gopal [id number] Yani W Herron 07/02/2023 2 [place]) [id number] Yani W Herron [id number] Yani W Herron 12/31/2023 1 [place] Yani W Herron [id number] Yani W Herron 12/31/2023 2 [place]) [id number] Yani W Gopal [id number] Yani W Herron 07/07/2024 1 [place] Yani W Gopal [id number] Yani W Herron 07/07/2024 2 [place] [id number] Yani Herron [id number] Yani Herron 01/05/2025 1 [place] Yani Herron [id number] Yani Herron 01/05/2025 2 [place] [id number] Yani Herron [id number] Yani Herron Notes Date Note Type Note Provider Name and Address Organization Details Recorded Time 3 text/htm l Patient Name: Yani HerronDate Of Service: Saturday ( 01.01.2023 ): 1940 Age: 82 Vital Signs:Blood Pressure: Sitting Rt. Arm 138/72Pulse: Sitting 71 /min and RegularRespirations: 12Height 63.5 in or 1.6 mWeight 149 lb or 67.6 kgBMI 26.0Temperature: 96.9 F or 36.1 CPulse Oximetry: 97 % at rest on no oxygen Chief Complaint: Addressed in HPI Problems or conditions discussed in the HPI were the only ones reviewed during the encounter.Only social and family history addressed in the HPI were reviewed during this encounter. Attendant(s): None Constitutional and Systemic Symptoms: none Medication Reconciliation: from medication list. History of Present Illness #1. Coronary Artery Disease: There has been no change in frequency - duration - intensity in frequency, duration or intensity of chest pain. Other Complaints: none The frequency of anginal attacks is none at all. Additional Symptoms: none Therapy reviewed regarding cardiovascular management includes Aspirin, Cozaar, Lipitor, Metoprolol Tartrate, [place]-3 and Zetia #2. Essential Hypertension: Stage: Stage I Interval Neurological Complaints no headaches, dizziness, weakness, visual changes, ataxia, aphasia and apraxia. No shortness of breath, orthopnea or cardiovascular symptoms. No other symptoms related to end organ damage. Pressure has been under excellent control. Currently normal. No other end organ symptoms or findings. Therapy reviewed regarding management of hypertension and includes salt restriction and Cozaar and Metoprolol Tartrate. #3. Type II Hypercholesterolaemia: Currently taking medication and tolerating well. No interval complaints of any muscle pain or arthralgia. No significant liver changes with medications. Last lipid panel: fair control. Therapy reviewed regarding treatment of cholesterol management and include diet and Lipitor. #4. History of chronic renal failure currently doing well. Currently is followed by a senior wind energy consultant. Stage: CKD-3b. Albumin Stage: A1. There has been no change in urine output or color. No fever or chills.Medication List Reviewed and Reconciled 01/01/2023spirin 325 MG One Three Times WeeklyMetoprolol Tartrate 50 MG (TABLET - ORAL) One BidLipitor 80 MG (TABLET - ORAL) One Tab DailyOmega-3 1000 MG One BidOs-risa D 500 MG One Bid For Calcium ReplacementMultivitamin One DailyCozaar 50 MG (TABLET - ORAL) One DailyZetia 10 MG (TABLET - ORAL) One DailyPerser Vision Aereds II DailyAlendronate Sodium 70 MG TABLET One WeeklyADRs List Reviewed 01/01/2023Lisinopril CoughVaccination and Cduolegbtijp1559-08 Onrroausj6820-69 Covid Yuooat4284-03 Prevnar 843668-21 PneumovaxSurgical HistoryCABGPreventative Testing Confirmed by Our Bwcoqmh9908/29/2022 DEXA SCAN07/26/2022 LETTER [id number]/14/2022 ALBUMIN 4.3 G/DL06/01/2016 LETTER [id number]/21/2016 MAMMOGRAM COLONOSCOPY (10 YEARS) 03/05/2024Social HistoryDoes not smoke drinks sociallyFamily HistoryMother 70+ of ASHD, CVAFather at 62 from ASHD and MIThree brothers two living one with hx of ASHD and one of cardiac problemsOne sister living with cardiac problems. Ami Major MD [address] [facility], [facility] [address], [place], [address], [place] - [facility] [employer] [facility] [employer] 01/01/2023 15:02:28 3 text/htm l Patient Name: Yani Emmanuel Of Service: Saturday ( 07.02.2023 ): 1940 Age: 82 There has been approximately a 8 lb weight loss since 01/01/2023. This represents approximately a 5.4% change in weight. Weight change attributable to lifestyle changes. Vital Signs:Blood Pressure: Sitting Rt. Arm 120/62Pulse: Sitting 76 /min and RegularRespiratory Rate: 12Height 63.5 in or 1.6 mWeight 141 lb or 64.0 kgBMI 24.6Temperature: 97 F or 36.1 CPulse Oximetry: 97 [...] cardiovascular management includes Aspirin, Hydrochlorothiazide, Lipitor, Metoprolol Tartrate, [place]-3 and Zetia #2. Essential Hypertension: Stage: Stage I Interval Neurological Complaints no headaches, dizziness, weakness, visual changes, ataxia, aphasia and L. No shortness of breath, orthopnea or cardiovascular [...] include diet and Lipitor and Zetia. #4. History of chronic renal failure currently doing well. Currently is followed by a senior wind energy consultant. Stage: CKD-3a. Albumin Stage: A1. There has been no change in urine output or color. No fever or chills.Medication List Reviewed and Reconciled 07/02/2023spirin 325 MG One Three Times WeeklyMetoprolol Tartrate 50 MG (TABLET - ORAL) One BidLipitor 80 MG (TABLET - ORAL) One Tab DailyOmega-3 1000 MG One BidOs-risa D 500 MG One Bid For Calcium ReplacementMultivitamin One DailyZetia 10 MG (TABLET - ORAL) One DailyPerser Vision Aereds II DailyHydrochlorothiazide 25 MG TABLET Once DailyAlendronate Sodium 70 MG TABLET One WeeklyADRs List Reviewed 07/02/2023Lisinopril CoughVaccination and Lmopbgquutma5968-94 Influenza Hd Ea7490-46 Xqrzzosfl6458-10 Covid Nwldcg7037-82 Prevnar 842572-13 PneumovaxSurgical HistoryCABGPreventative Testing Confirmed by Our Ukjygfw7001/14/2023 ALBUMIN 4.1 G/DL08/29/2022 DEXA SCAN07/26/2022 LETTER RXAATEIZTBDID13/02/2016 LETTER SKCNJXTNS83/21/2016 MAMMOGRAM COLONOSCOPY (10 YEARS) 03/05/2024Social HistoryDoes not smoke drinks sociallyFamily HistoryMother 70+ of ASHD, CVAFather at 62 from ASHD and MIThree brothers two living one with hx of ASHD and one of cardiac problemsOne sister living with cardiac problems. Ami Major MD [address] [place] [address], [facility] [address], [place], [address], [facility] [employer] 07/02/2023 15:42:24 4 text/htm l Patient Name: Yani Rogerste Of Service: Saturday ( 12.31.2023 ): 1940 Age: 83 There has been approximately a 2 lb weight loss since 07/02/2023. This represents approximately a 1.4% change in weight. Weight change attributable to lifestyle changes. Vital Signs:Blood Pressure: Sitting Rt. Arm 148/80Pulse: Sitting 72 /min and RegularRespiratory Rate: 12Height 63.5 in or 1.6 mWeight 139 lb or 63.0 kgBMI 24.2Temperature: 97 F or 36.1 CPulse Oximetry: 98 % at rest on no oxygen Chief Complaint: Addressed in HPI Problems or conditions discussed in the HPI were the only ones reviewed during the encounter.Only social and family history addressed in the HPI were reviewed during this encounter. Attendant(s): NoneConstitutional and Systemic Symptoms:none Medication Reconciliation: from medication list. History of Present Illness #1. Coronary Artery Disease: There has been minimal change in frequency, duration or intensity of chest pain. Other Complaints: none The frequency of anginal attacks is none at all. Additional Symptoms: none Therapy reviewed regarding cardiovascular management includes Aspirin, Hydrochlorothiazide, Lipitor, Metoprolol Tartrate, [place]-3 and Zetia #2. Essential Hypertension: Stage: Stage I Interval Neurological Complaints no headaches. No shortness of breath, orthopnea or cardiovascular [...] liver changes with medications. Last lipid panel: fair control. Therapy reviewed regarding treatment of cholesterol management and include diet and Lipitor. #4. History of chronic renal failure currently doing well. Currently is followed by a senior wind energy consultant. Stage: CKD-3a. Albumin Stage: A1. There has [...] Adverse Drug Reactions ReviewedLisinopril Cough Vaccination and Ujaddvcfggzk8584-96 Influenza Ed Uc8873-96 Ompioghtn7430-95 Covid Vwylyt8575-37 Prevnar 13 Di9391-20 Pneumovax Surgical Kvffkvd8087-16 CABG Preventative Xxgicmo5607/05/2023 ALBUMIN 4.4 G/DL N110/29/2021 DEXA SCAN07/26/2022 TYELQTMALGLRK24/02/2016 NQPZFWLKQ57/21/2016 MAMMOGRAM COLONOSCOPY (10 YEARS) 03/05/2024 Social HistoryDoes not smoke drinks socially Family HistoryMother 70+ of ASHD, CVAFather at 62 from ASHD and MIThree brothers two living one with hx of ASHD and one of cardiac problemsOne sister living with cardiac problems. Ami Major MD [address] [facility], [place], [address], [place] [facility] [employer] [facility] [employer] 12/31/2023 15:51:48 4 text/htm l Patient Name: Yani Emmanuel Of Service: Saturday ( 07.07.2024 ): 1940 Age: 83 Vital Signs:Blood Pressure: Sitting Rt. Arm 142/78Pulse: Sitting 77 /min and RegularRespiratory Rate: 12Height 63.5 in or 1.6 mWeight 140 lb or 63.5 kgBMI 24.4Temperature: 97 F or 36.1 CPulse Oximetry: 97 [...] none Therapy reviewed regarding cardiovascular management includes Lipitor, Metoprolol Tartrate and Zetia #2. Essential Hypertension: Stage: Stage I Interval Neurological Complaints no headaches. No shortness of breath, orthopnea or cardiovascular symptoms. No other symptoms related to end organ damage. Pressure has been under excellent control. Currently normal. No other end organ symptoms or findings. Therapy reviewed regarding management of hypertension and includes salt restriction and Hydrochlorothiazide, Metoprolol Tartrate and Zetia. #3. Type II Hypercholesterolaemia: Currently taking medication and tolerating well. No interval complaints of any muscle pain or arthralgia. No significant liver changes with medications. Last lipid panel: fair control. Therapy reviewed regarding treatment of cholesterol management and include diet and Medication.#4. History of chronic kidney disease stage IIIA clinically stable. Will need to check blood work. Had been seen in the past by Nephrology for currently is being followed by us at the request of Nephrology unless there is any deterioration in renal function. Active Medication ListAspirin 325 MG One Three [...] PREVNAR 13 GC(X) 2021-06 COVID PFIZER( ) 2023-06 INFLUENZA ED HD( ) 2024-06 PREVNAR 20 Surgical Vfyzpfx8852-19 CABG Preventative Testing( ) 01/03/2024 Albumin 4.0 G/DL N( ) 08/29/2022 DEXA Scan 08/29/2024( ) 07/26/2022 Ophthalmology( ) 06/01/2016 Optometry( ) 01/19/2016 Mammogram 01/18/2018( ) 03/05/2014 Colonoscopy (10 Years) 03/05/2024 Social HistoryDoes not smoke drinks socially Family HistoryMother 70+ of ASHD, CVAFather at 62 from ASHD and MIThree brothers two living one with hx of ASHD and one of cardiac problemsOne sister living with cardiac problems. TEST RESULT RANGE UNITSCBC (INCLUDES DIFF/PLT) Date: 01/03/2024WHITE BLOOD CELL COUNT 6.0 3.8-10.8 THOUSAND/ULHEMOGLOBIN 14.4 11.7-15.5 G/DLHEMATOCRIT 43.3 35.0-45.0 %PLATELET COUNT 220 140-400 THOUSAND/ULCOMPREHENSIVE METABOLIC PANEL Date: 01/03/2024SODIUM 142 135-146 MMOL/LPOTASSIUM 4.4 3.5-5.3 MMOL/LGLUCOSE 106 65-99 MG/DLUREA NITROGEN (BUN) 23 7-25 MG/DLCREATININE 1.29 0.60-0.95 MG/DLEGFR 41 > OR = 60 ML/MIN/1.90T6AFF 15 10-35 U/LALT 17 6-29 U/LLIPID PANEL, STANDARD Date: 01/03/2024HOLESTEROL, TOTAL 132 <200 MG/DLHDL CHOLESTEROL 44 > OR = 50 MG/DLTRIGLYCERIDES 118 <150 MG/DLLDL-CHOLESTEROL 68 MG/DL (CALC) Ami Major MD [address] [facility] [address], [place], [address], [place] [facility] 07/07/2024 15:34:43 5 text/htm l Patient Name: Yani Emmanuel Of Service: Saturday ( 01.05.2025 ): 1940 [...] doing well. Currently is followed by a senior wind energy consultant. Stage: CKD-3a. Albumin Stage: A1. There has [...] Reactions ReviewedLisinopril Cough Vaccination and Immunization( ) 2007- PNEUMOVAX( ) 2024-06 INFLUENZA( ) 2017-06 PREVNAR 13 GC(X) 2021-06 COVID PFIZER( ) 2024-06 INFLUENZA ED HD( ) 2024-06 PREVNAR 20 Surgical Gpkoitr1727-46 CABG Preventative Testing( ) 07/09/2024 Albumin 4.1 [...] 68 MG/DL (CALC) Ami Major MD [address] [facility], [facility] [address], [place], [address], [place] [employer] 01/05/2025 15:19:30 OBGyn Episode No OBEpisode recorded.
--- OUTSIDE RECORDS SUMMARY | 2025-01-06 13:39 | XMS_ITS | CONTINUITY OF CARE DOCUMENT ---
Author Name tom santos Address Unknown Organization [facility] Address [address] [place] [address] [address] [place] [address] Phone [phone] Care Team Providers Care Geek Squad Manager Name Role Phone tom santos Unavailable Unavailable INSURANCE PROVIDERS Payer name Policy type / Coverage type [place] red green party ID A[employer] Commercial insurance company [id number] [place] [employer] Medicare [id number]
== END 2025-01-06 12:16 | disposition home or self-care (01) ==
PROVIDERS: PCP Internal Medicine; Visit Provider Internal Medicine
DX: M25.559 Pain in unspecified hip (principal); M54.50 Low back pain, unspecified
CPT/HCPCS: 72100; 73521